=== PATIENT | female | born 1960 | race Caucasian/White ===

== ENCOUNTER 2016-07-13 08:39 | Day surgery (SDC) | payer BC ==
[2016-07-08 11:20] VITALS: BMI 27.4
[~2016-07-13 08:39] MED LIST: HEPARIN SODIUM,PORCINE 5,000 UNIT/ML 1 ML VIAL SQ ONE; HYDROmorphone 1 MG/ML 1 ML SYRINGE IVP PRN; LACTATED RINGERS 1,000 ML IV SCH; LIDOCAINE 1% 20 ML VIAL (10MG/ML) FOR IV START INTRADERMA PRN; MIDAZOLAM 2 MG/2 ML VIAL IV PRN; ONDANSETRON 4 MG/2 ML VIAL IVP PRN; ceFAZolin 2 GM in SODIUM CHLORIDE 0.9% 100 ML IVPB ONE
[2016-07-13 09:02] VITALS: RESP 16; TEMP 97
[2016-07-13] MEDS ORDERED: SCOPOLAMINE 1.5MG/72HR PATCH TRANSDERM ONE (09:17)
[2016-07-13] MEDS ORDERED: HEPARIN SODIUM,PORCINE 5,000 UNIT/ML 1 ML VIAL SQ ONE (10:21)
[2016-07-13] MEDS ORDERED: LIDOCAINE 1% INJ 10MG/ML (20 ML MDV) SQ ONE ×3 (10:24→10:34)
[2016-07-13] MEDS ORDERED: fentaNYL (PF) 50 MCG/ML 2 ML AMP ONE (10:24)
[2016-07-13] MEDS ORDERED: LIDOCAINE 1% INJ 10MG/ML (20 ML MDV) ONE (10:24)
[2016-07-13] MEDS ORDERED: MIDAZOLAM 2 MG/2 ML VIAL ONE (10:24)
[2016-07-13] MEDS ORDERED: PROPOFOL 10 MG/ML 20 ML VIAL IV ONE (10:24)
--- NOTE | 2016-07-13 11:00 | P.OP ---
Date of Procedure: 07/13/16 Preoperative Diagnosis: Right breast cancer Postoperative Diagnosis: Patient status post placement of Port-A-Cath for removal of Port-A-Cath completed chemotherapy Procedure(s) Performed: Removal of right sided internal jugular Port-A-Cath Anesthesia: MAC Surgeon: Malia Stoner Estimated Blood Loss (ml): 1 IV fluids (ml): 300 Pathology: none sent Condition: stable Disposition: PACU Indications for Procedure: Patient has a right internal jugular Port-A-Cath and has completed chemotherapy for breast cancer patient for removal of Port-A-Cath Operative Findings: Right internal jugular Port-A-Cath Description of Procedure: The patient was taken to the operating room and following sedation the right neck and chest wall were prepped and draped in a sterile fashion. An incision was made over the palpable catheter that was anterior to the clavicle. His was done after 1% lidocaine was used to anesthetize the area. Dissection in this area revealed the catheter. It was free and was easily withdrawn from the area of the internal jugular. Prior to this the patient was placed in Trendelenburg. Pressure was applied over the area of the jugular as the catheter was withdrawn. The tip of the catheter was clearly seen and completely removed. After this was accomplished the area of the port was addressed. One percent lidocaine was used to anesthetize this area. Small incision was made over this area and port was exposed. The remainder of the catheter was brought out from the area of the clavicle to the area of the port. The port was than removed from the fibrous pocket in which it was located. After assured that hemostasis was attained the pocket was closed using several deep 3-0 Vicryl sutures. Skin incisions were closed using 4-0 Monocryl. Steri- Strips were applied. All instrument and sponge counts were correct at the end of the case. Patient tolerated procedure in stable condition.
--- NOTE | 2016-07-13 11:01 | P.DS ---
Providers Attending physician: Malia Stoner Primary care physician: Kory Singh Plan - Discharge Summary Discharge Medication List Ascorbic Acid [Vitamin C] 2,000 mg PO DAILY 01/02/16 [History] Atenolol 100 mg PO QAM 01/02/16 [History] Cholecalciferol [Vitamin D3] 20,000 unit PO DAILY 01/02/16 [History] Lisinopril [Prinivil] 10 mg PO QAM 01/02/16 [History] Multivitamins, Thera [Multivitamin (formulary)] 1 tab PO DAILY 01/02/16 [History ] Ibuprofen [Motrin] 600 mg PO Q8HR PRN 02/04/16 [History] Cyanocobalamin [Vitamin B-12] 2 tab PO DAILY 02/09/16 [History] Acetaminophen Tab [Tylenol Tab] 1,000 mg PO Q6HR PRN 07/08/16 [History] Nicotine 21Mg/24Hr Patch [Habitrol 21Mg/24Hr Patch] 1 each TRANSDERM DAILY 07/08 [History] Tamoxifen [Nolvadex] 20 mg PO DAILY 07/08/16 [History] Follow up Appointment(s)/Referral(s): Malia Stoner MD [STAFF PHYSICIAN] - 1 Week Activity/Diet/Wound Care/Special Instructions: do not drive today Discharge Disposition: HOME SELF-CARE
[2016-07-13 11:59] VITALS: BP 142/70; PULSE 58
== END 2016-07-13 12:23 | disposition home or self-care (01) ==
LOC: OR 08:39
PROVIDERS: ATTEND Surgery
DX: Z45.2 Encounter for adjustment and management of vascular access device (principal); C50.919 Malignant neoplasm of unspecified site of unspecified female breast; F17.200 Nicotine dependence, unspecified, uncomplicated; I10 Essential (primary) hypertension; Z79.899 Other long term (current) drug therapy
CPT/HCPCS: 81025; 36590; J2250; J1644; J0690; J2405; J2001; J3010; J2704

== ENCOUNTER 2016-09-21 06:46 | Day surgery (SDC) | payer BC ==
[2016-09-16 14:24] VITALS: BMI 27.4
[~2016-09-21 06:46] MED LIST changes: +DEXAMETHASONE SOD PHOSPHATE 10 MG/ML 1 ML VIAL IV ONE; -HEPARIN SODIUM,PORCINE 5,000 UNIT/ML 1 ML VIAL SQ ONE; +ONDANSETRON 4 MG/2 ML VIAL IVP ONE; -ONDANSETRON 4 MG/2 ML VIAL IVP PRN; +SCOPOLAMINE 1.5MG/72HR PATCH TRANSDERM ONE
[2016-09-21] MEDS ORDERED: ePHEDrine 50 MG/ML 1 ML AMP ONE (07:40)
[2016-09-21] MEDS ORDERED: HYDROmorphone (PF) 1 MG/ML ONE (07:40)
[2016-09-21] MEDS ORDERED: fentaNYL (PF) 50 MCG/ML 2 ML AMP ONE (07:40)
[2016-09-21] MEDS ORDERED: PROPOFOL 10 MG/ML 20 ML VIAL IV ONE (07:40)
[2016-09-21] MEDS ORDERED: MIDAZOLAM 2 MG/2 ML VIAL ONE (07:40)
[2016-09-21] MEDS ORDERED: GLYCOPYRROLATE 0.2 MG/ML 2 ML VIAL ONE (07:40)
[2016-09-21] MEDS ORDERED: ROCURONIUM BROMIDE 10 MG/ML 10 ML VIAL IV ONE (07:40)
[2016-09-21] MEDS ORDERED: LIDOCAINE 1% INJ 10MG/ML (20 ML MDV) ONE (07:40)
[2016-09-21] MEDS ORDERED: NEOSTIGMINE 1 MG/ML 10 ML VIAL ONE (07:40)
[2016-09-21] MEDS ORDERED: SUCCINYLCHOLINE CHLORIDE 100 MG/5 ML SYR IV ONE (07:40)
[2016-09-21] MEDS ORDERED: LACTATED RINGERS 1,000 ML IV ONE (09:44)
[2016-09-21 10:01] VITALS: TEMP 97
[2016-09-21 10:49] VITALS: RESP 20
[2016-09-21] MEDS ORDERED: KETOROLAC 30 MG/ML 1 ML VIAL IVP ONE (11:05)
[2016-09-21] MEDS ORDERED: IBUPROFEN 200 MG TAB PO ONE (11:06)
[2016-09-21 11:44] VITALS: BP 133/77; PULSE 65
--- NOTE | 2016-09-21 18:51 | OP ---
DATE OF SERVICE: 09/21/2016 SURGEON: MINH FORD MD ENVIRONMENTAL ENGINEER SCIENTIST: PREOPERATIVE DIAGNOSES: 1. Acquired loss, right and left breast. 2. Personal history of breast cancer. 3. Personal history of bilateral mastectomy. 4. Acquired loss, right and left inframammary fold. 5. 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 POSTOPERATIVE DIAGNOSES: 1. Acquired loss of right and left breast. 2. Personal history of breast cancer. 3. Personal history of bilateral mastectomy. 4. Acquired loss, right and left inframammary fold. 5. 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 OPERATIVE PROCEDURES: 1. Replacement of right breast tissue a r collections rep with silicone breast implant for reconstruction. 2. Revision right reconstructed breast. 3. Replacement of left breast tissue a r collections rep with silicone breast implant for breast reconstruction. 4. Revision left reconstructed breast. 5. Reconstruction of right and left inframammary folds via local advancement flap, 74 sq cm. 6. Implantation of reconstructive graft for right and left breast reconstruction, 300 sq cm. ANESTHESIA: ESTIMATED BLOOD LOSS: SPECIMENS REMOVED: COMPLICATIONS: OPERATIVE FINDINGS: OPERATIVE INDICATIONS: Patient is a 56-year-old female who has undergone bilateral mastectomies for breast cancer. She chose to undergo immediate breast reconstruction with tissue a r collections rep technique at the time. Her surgery was complicated by postoperative wound healing problems involving both breasts, but severely so on the left. This delayed the time to start expansion. Ultimately she healed without further surgery and has completed expansion. There are significant deformities present for both breasts with significant asymmetry, loss of inframammary folds, contour irregularities present. She is returning to surgery today for second-stage breast reconstruction to remove to tissue expanders, revise the reconstructive breasts to obtain more symmetrical shape and improve the contour as well as reconstruct right and left breast inframammary folds that have been effaced from the mastectomy and reconstruction processes. She understands there are potential risks and complications associated with the surgery, including wound healing problems, and to that end she made all efforts to discontinue use of tobacco, although she remains on a nicotine patch. She also understands that other potential risks and complications are present, and that likely future surgery will be required to obtain a final result. She has requested I perform the surgery. OPERATIVE PROCEDURE SUMMARY: Patient was seen in pre-surgical area. Markings were made, procedure reviewed, all questions answered. She was transported to the operating room, where she was placed in supine position. Following induction of general endotracheal anesthesia, the patient was prepped and draped in the usual fashion. All surgery was performed under loupe magnification. The right and left breasts were marked for incisions, a transverse orientation on each side based on the patient's prior mastectomy scars. The surgery was started on the right side, making an incision following diagram placed, dividing the skin in full-thickness fashion followed by dissection of skin and subcutaneous tissue flap off the underlying muscle flap layer. Extensive dissection was required to release contour irregularities that were noted previously. Cauterization was used to maintain hemostasis and also dissected points. Once this was completed, a vertical incision was made through the muscle flap layer following the breast meridian, exposing the a r collections rep. The a r collections rep was ruptured with a 10 blade scalpel and all fluid suctioned away. The a r collections rep was removed. The cavity appeared normal. No granulation tissue or exudates. The cavity was irrigated using pulsatile irrigation system. A complete capsulotomy incision was made where the capsule joined the chest wall, and multiple cruciate incisions through the expansion capsule were made using cauterization in all areas except for the inferior aspect, where the incisions were made through the capsule in a vertical fashion. This completely the capsule. Additional dissection was required in the inferior portion to release contour irregularities present. This was completed with cauterization, making cruciate incisions through the capsule where necessary to help release the irregularities. The patient's fold on the right side was now reconstructed. The area needed measured 22 cm transversely by 2 cm vertically. Skin and subcutaneous tissue flap was elevated through the inferior capsulotomy incision by dissection with cautery. Once sufficient size was obtained, hemostasis was maintained with cautery. Additional irrigation was performed and the flap was advanced in cephalad fashion and secured to the chest wall in several interrupted locations using 0 and 2-0 Vicryl interrupted sutures, creating a discrete right inframammary fold. Irrigation was performed. Hemostasis was excellent. Initially a 650 mL sizer was placed in the cavity and was covered with a moistened laparotomy sponge, and then attention was turned towards the left side. An incision was made following diagram placed, dividing the skin in full-thickness fashion followed by elevation of skin and subcutaneous tissue flap off the underlying muscle flap layer. The muscle flap layer was quite attenuated on this side. Dissection was completed, the skin and subcutaneous tissue from the underlying muscle flap layer to release contour irregularities that were multiple. Once this was completed, incision was made through the expansion capsular structure following the breast meridian using cauterization, exposing the a r collections rep. The a r collections rep was ruptured with a 10 blade scalpel, all fluid suctioned, then removed. The cavity appeared normal, with no granulation tissue or exudates. Irrigation was performed with pulsatile irrigation system. A complete capsulotomy incision was made where the capsule joined the chest wall. The capsule was slightly hypertrophic on this side compared to the right side. Multiple cruciate incisions were made through the capsule to release the structure in all areas. This significantly decreased the tightness of the capsule. Hemostasis was maintained with cautery. Additional irrigation was performed. The inframammary fold on this side did not require a large flap and it measured 20 cm transversely by 1.5 cm vertically. The inframammary fold flap was elevated through the inferior capsulotomy incision. It consisted of skin and subcutaneous tissue. Once the flap was created, it was advanced in cephalad fashion and secured to the chest wall in several interrupted locations using 0 and 2-0 Vicryl interrupted sutures. A discrete inframammary fold was created in near-symmetric location to the right side. Irrigation was performed. Hemostasis was excellent. Initially a 650 mL sizer was placed into the cavity. The patient was placed in a seated-up position. Different implant sizers were now evaluated. Ultimately, a 750 mL sizer appeared optimal on both sides. She was returned to supine position. Both temporary implant sizers were removed, both sides irrigated. Hemostasis was excellent. Gloves were now changed and breast implants opened on the field. The right-sided implant was opened first: a Dumas memory gel breast implant, smooth, round, high-profile, style 4000 smooth, 750 mL volume, reference #[id number], serial #[id number]. The device was only handled by the surgeon. After irrigating with saline, it was inserted in the right-sided breast reconstruction cavity. Gloves were now changed, the left-sided implant opened on the field: exact same model number and reference number. The serial number for the left-sided device was [id number]. Again the device was irrigated with saline, only handled by the surgeon, and inserted directly in the breast reconstruction cavity. The muscle flap tissue on either side could be directly approximated over the implants without creasing; therefore SurgiMend reconstructive graft material was opened on the field; 2 pieces were opened measuring 10 x 15 cm, thin and fenestrated. They were soaked in room-temperature saline. Once ready, the SurgiMend was placed on the right side, then left side. The SurgiMend was oriented in inferior sling technique, secured just above the inframammary fold region on the right and left sides with interrupted 3-0 Vicryl, and then the muscle flap tissue was advanced over the SurgiMend and the muscle flap tissue and SurgiMend were inset to each other using interrupted 3-0 Vicryl. This was completed on both sides. Complete coverage was now obtained. Additional irrigation was performed. Hemostasis was good. The incisions were now closed, approximating the deep dermis using inverted interrupted 4-0 Monocryl followed by closure of superficial dermis and epidermis with running 5-0 Prolene. The surgical field was cleansed with saline, dried, postoperative bandages placed using Kerlix gauze secured with paper tape followed by positioning a size 3 mammary support with additional gauze padding. The patient was then awakened from her anesthetic, extubated and transferred to the recovery room in good condition with stable vital signs. There were no complications.
== END 2016-09-21 11:59 | disposition home or self-care (01) ==
LOC: OR 06:46
PROVIDERS: ATTEND Plastic Surgery
DX: Z42.1 Encounter for breast reconstruction following mastectomy (principal); R00.1 Bradycardia, unspecified; Z90.13 Acquired absence of bilateral breasts and nipples; Z85.3 Personal history of malignant neoplasm of breast; I10 Essential (primary) hypertension; Z79.899 Other long term (current) drug therapy; F17.200 Nicotine dependence, unspecified, uncomplicated
CPT/HCPCS: 93005; 19342; C1789; C1763; J2250; J1100; J2710; J0690; J2405; J2001; J3010; J1885; J1170; J0330; J2704

== ENCOUNTER 2017-08-24 06:13 | Day surgery (SDC) | payer BC ==
[2017-08-19 10:00] VITALS: BMI 26.6
[~2017-08-24 06:13] MED LIST changes: -HYDROmorphone 1 MG/ML 1 ML SYRINGE IVP PRN; -MIDAZOLAM 2 MG/2 ML VIAL IV PRN; +MORPHINE SULFATE 4 MG/ML SYRINGE IV PRN; +Pre Op ABX Message 1 EACH MISC MISCELLANE ONE; -ceFAZolin 2 GM in SODIUM CHLORIDE 0.9% 100 ML IVPB ONE
[2017-08-24] MEDS ORDERED: ceFAZolin IN SWFI 2 GM/20 ML SYRINGE IVP STA (07:47)
[2017-08-24] MEDS ORDERED: GLYCOPYRROLATE 0.2 MG/ML 2 ML VIAL ONE (07:57)
[2017-08-24] MEDS ORDERED: SUCCINYLCHOLINE CHLORIDE 100 MG/5 ML SYR IV ONE (07:57)
[2017-08-24] MEDS ORDERED: ePHEDrine SULFATE/0.9% NACL/PF 50 MG/5 ML SYRINGE IV ONE (07:57)
[2017-08-24] MEDS ORDERED: PHENYLEPHRINE-0.9% NACL SYG 1 MG/10 ML SYRINGE ONE (07:57)
[2017-08-24] MEDS ORDERED: MIDAZOLAM 2 MG/2 ML VIAL ONE (07:57)
[2017-08-24] MEDS ORDERED: ONDANSETRON 4 MG/2 ML VIAL ONE (07:57)
[2017-08-24] MEDS ORDERED: fentaNYL (PF) 50 MCG/ML 2 ML AMP ONE (07:57)
[2017-08-24] MEDS ORDERED: LIDOCAINE 1% INJ 10MG/ML (20 ML MDV) ONE (07:57)
[2017-08-24] MEDS ORDERED: PROPOFOL 10 MG/ML 20 ML VIAL IV ONE (07:57)
[2017-08-24] MEDS ORDERED: SODIUM CHLORIDE 0.9% 50 ML with ceFAZolin 2,000 MG IV ONE ×2 (08:10)
[2017-08-24 09:30] VITALS: TEMP 97.4
[2017-08-24] MEDS: fentaNYL (PF) 50 MCG/ML 2 ML AMP IVP ONE ×2 (09:41→09:50)
[2017-08-24 10:50] VITALS: RESP 18
--- NOTE | 2017-08-24 11:10 | OP ---
OPERATIVE REPORT DATE OF SURGERY: 08/24/2017 SURGEON: Adam Borja MD PREOPERATIVE DIAGNOSES: 1. Acquired loss left breast. 2. Personal history of breast cancer. 3. Personal history of mastectomy. POSTOPERATIVE DIAGNOSES: 1. Acquired loss left breast. 2. Personal history of breast cancer. 3. Personal history of mastectomy. OPERATIVE PROCEDURE: 1. Delayed reconstruction left breast with insertion of tissue film historian, subsequent outpatient expansion. 2. Implantation of reconstructive graft for left breast reconstruction, 150 square centimeters. OPERATIVE INDICATIONS: The patient is a 57-year-old female who has undergone bilateral mastectomies for treatment of breast cancer. She underwent immediate reconstruction via tissue film historian technique and then completed expansion with implant placements. After the implant placement, the patient developed complications on the left side that ultimately led to removal of her implant and a wound that healed by secondary intention. During that time, the patient has been able to stop smoking to decrease her risk with further surgery and has decided to repeat the expansion process. She understands potential risks and complications related to the surgery including infection, wound healing problems, seroma, hematoma, among others. The patient also understands outcomes cannot be guaranteed and there are other potential complications. She has requested to proceed with the surgery. OPERATIVE PROCEDURE SUMMARY: The patient was seen in the presurgical area, markings made, procedure reviewed, all questions answered. She was transported to the operating room where she was placed in supine position. Following induction of general endotracheal anesthesia, the patient was prepped and draped in usual fashion. The left breast mastectomy wound healing scar was now outlined in elliptical fashion and excised using a 10 blade scalpel, sending the excised scar tissue to pathology. The skin and subcutaneous tissue were then elevated off the underlying muscle flap tissue where present and this was completed with cauterization. Dissection was then performed, dividing the muscle flap layer and scar tissue and then to allow access to the deep surface of the muscle flap area although the plane was heavily scarred. The composite pectoralis muscle flap was re- elevated off the patient's chest wall with cauterization. Portions of the flap were missing or simply replaced by scar tissue, but all tissue that remained appeared viable. Once this submuscular plane was developed in sufficient fashion for breast reconstruction, dissection stopped, irrigations performed, measurements were obtained. A Soufun high-profile breast tissue film historian was opened onto the field. The reference number is [id number], serial number is [id number]. This device had a volume 500 mL. Gloves were first changed and then the device was only handled by the surgeon. All air is extracted. The device was rinsed with saline and 50 mL 0.9 normal saline instilled. It was clear from elevation of the muscle flap that the film historian would not be directly covered by the muscle tissue available due to the scarring and some loss of tissue from her prior surgery and problems. Therefore SurgiMend reconstructive graft measuring 10 x 15 cm thin and fenestrated was opened on the field. Once the graft was revitalized in room temperature saline, the graft was inserted into the reconstructive cavity and sutured just above the inframammary fold level to the muscle flap tissue. The graft was secured here with interrupted 3-0 Vicryl oriented inferior sling style. The film historian was now inserted in reconstructive cavity. The SurgiMend was advanced over the film historian and muscle flap tissue advanced over the SurgiMend. Complete coverage of the film historian was obtained. The SurgiMend and muscle flap tissue were then inset to each other using interrupted 3-0 Vicryl. Irrigation was performed. Hemostasis was excellent. A 19 round Ciro channel drain was opened on the the field and inserted in reconstructive cavity, placed over the muscle flap and SurgiMend layer and brought out through a separate stab incision in left anterior lower chest wall and sutured in placed 2-0 Prolene. The drain was cut to appropriate length. The skin incision was now closed approximating the deep dermis using inverted interrupted 4-0 Monocryl followed by closure of superficial dermis and epidermis with running 5-0 Prolene. Surgical tse cleansed with saline and covered with a postoperative bandage using silver silicone dressing followed by 4x4s secured with 3M paper tape. The drain was connected to close bulb suction and patent and drain sponge was placed. The patient was then awakened from her anesthetic, extubated, and transferred to the recovery room in good condition with stable vital signs. There were no complications. The estimated blood loss was 25 mL and the final fill volume of the film historian was 100 mL. MMODL / IJN: [id number] /
[2017-08-24 11:27] VITALS: BP 126/67; PULSE 80
== END 2017-08-24 11:25 | disposition home or self-care (01) ==
LOC: OR 06:13
PROVIDERS: ATTEND Plastic Surgery
DX: C50.912 Malignant neoplasm of unspecified site of left female breast (principal); Z90.12 Acquired absence of left breast and nipple; I10 Essential (primary) hypertension; F17.210 Nicotine dependence, cigarettes, uncomplicated; Z79.810 Long term (current) use of selective estrogen receptor modulators (SERMs); Z79.899 Other long term (current) drug therapy
CPT/HCPCS: 19357; 15777; 88304; C1763; J2250; J1100; J2405; J2001; J3010; J0690; J2370; J0330; J2704

== ENCOUNTER 2018-02-07 06:19 | Day surgery (SDC) | payer BC ==
[2018-02-01 15:53] VITALS: BMI 27.4
[~2018-02-07 06:19] MED LIST changes: +MIDAZOLAM 2 MG/2 ML VIAL IV PRN; -MORPHINE SULFATE 4 MG/ML SYRINGE IV PRN; -SCOPOLAMINE 1.5MG/72HR PATCH TRANSDERM ONE; +fentaNYL (PF) 50 MCG/ML 2 ML AMP IV PRN
[2018-02-07] MEDS ORDERED: SCOPOLAMINE 1.5MG/72HR PATCH TRANSDERM STA (07:08)
[2018-02-07 07:15] LABS: Basophils # (A) 0.1 k/uL (0-0.2); Basophils % (A) 1 %; Eosinophils # (A) 0.3 k/uL (0-0.7); Eosinophils % (A) 4 %; HCT 43.8 % (34.0-46.0); HGB 14.3 gm/dL (11.4-16.0); Lymphocytes # (A) 2.5 k/uL (1.0-4.8); Lymphocytes % (A) 28 %; MCH 28.7 pg (25.0-35.0); MCHC 32.5 g/dL (31.0-37.0); MCV 88.3 fL (80.0-100.0); Mean Platelet Volume 6.3; Monocytes # (A) 0.3 k/uL (0-1.0); Monocytes % (A) 3 %; Neutrophils # (A) 5.6 k/uL (1.3-7.7); Neutrophils % (A) 63 %; Platelet Count 387 k/uL (150-450); RBC 4.96 m/uL (3.80-5.40); RDW 13.6 % (11.5-15.5); WBC 8.9 k/uL (3.8-10.6)
[2018-02-07 07:30] LABS: Anion Gap 9 mmol/L; Blood Urea Nitrogen 18 mg/dL (7-17); Calcium 9.6 mg/dL (8.4-10.2); Carbon Dioxide 25 mmol/L (22-30); Chloride 109 mmol/L (98-107); Glucose 96 mg/dL (74-99); Potassium 4.7 mmol/L (3.5-5.1); Sodium 143 mmol/L (137-145)
[2018-02-07] MEDS ORDERED: NEOSTIGMINE 1 MG/ML 10 ML VIAL ONE (07:30)
[2018-02-07] MEDS ORDERED: PROPOFOL 10 MG/ML 20 ML VIAL IV ONE (07:30)
[2018-02-07] MEDS ORDERED: GLYCOPYRROLATE 0.2 MG/ML 2 ML VIAL ONE (07:30)
[2018-02-07] MEDS ORDERED: LIDOCAINE 1% INJ 10MG/ML (20 ML MDV) ONE (07:30)
[2018-02-07] MEDS ORDERED: fentaNYL (PF) 50 MCG/ML 2 ML AMP ONE (07:30)
[2018-02-07] MEDS ORDERED: ePHEDrine SULFATE/0.9% NACL/PF 50 MG/5 ML SYRINGE IV ONE (07:30)
[2018-02-07] MEDS ORDERED: ROCURONIUM BROMIDE 10 MG/ML 10 ML VIAL IV ONE (07:30)
[2018-02-07] MEDS ORDERED: MIDAZOLAM 2 MG/2 ML VIAL ONE (07:30)
[2018-02-07] MEDS ORDERED: SODIUM CHLORIDE 0.9% 50 ML with ceFAZolin 2,000 MG IV ONE ×2 (07:48)
[2018-02-07 09:06] VITALS: TEMP 97.5
[2018-02-07] MEDS ORDERED: LACTATED RINGERS 1,000 ML IV ONE (09:27)
[2018-02-07] MEDS ORDERED: KETOROLAC 30 MG/ML 1 ML VIAL IVP ONE (09:38)
[2018-02-07] MEDS: HYDROmorphone 1 MG/ML 1 ML SYRINGE IVP ONE ×2 (09:38→09:43)
[2018-02-07 10:14] VITALS: RESP 16
[2018-02-07] MEDS ORDERED: Acetaminophen-Codeine 300-30mg TAB PO ONE (10:33)
[2018-02-07 10:39] VITALS: BP 152/86; PULSE 67
--- NOTE | 2018-02-07 15:33 | OP ---
OPERATIVE REPORT PREOPERATIVE DIAGNOSES: 1. Acquired loss left breast. 2. Personal history of mastectomy. 3. Personal history of breast cancer. 4. Acquired loss of left inframammary fold. POSTOPERATIVE DIAGNOSES: 1. Acquired loss left breast. 2. Personal history of breast cancer. 3. Personal history of mastectomy. 4. Acquired deformity of reconstructed breast. 5. Acquired loss left breast inframammary fold. OPERATIVE PROCEDURES: 1. Replace left breast tissue evening anchor with silicone breast implant for breast reconstruction. 2. Revision of left reconstructed breast. 3. Reconstruction of left breast inframammary fold via local advancement flap, 32.5 cm2. 4. Implantation of reconstructive graft for left breast reconstruction. OPERATIVE INDICATIONS: Patient is a 57-year-old female who has undergone bilateral mastectomy for treatment of breast cancer initially with the reconstruction via bilateral tissue expanders and placement of implants. The patient then developed problems with healing involving the left breast following placement of implants. Ultimately required removal of the implant and open wound management. She then proceeded with further left breast reconstruction with placement of tissue evening anchor. She has completed subsequent outpatient expansion, has done well, is returning for removal, evening anchor and placement of a breast implant with revision of the breast due to contour irregularities and asymmetry with respect to the right reconstructed breast as well as reconstruction of her inframammary fold that has been effaced due to the reconstructive process. The patient understands the potential risks and complications including, but not limited to, wound healing problems, postoperative infection, seroma, hematoma, among others. She has requested I perform the surgery. OPERATIVE PROCEDURE SUMMARY: The patient is seen in the presurgical area, markings made, procedure reviewed. All questions answered. She was transported to the operative room where she was placed in supine position. Following induction of general anesthesia, the laryngeal mask airway. Following induction, the patient was prepped and draped in the usual fashion. An incision was made following the diagram placed preoperatively. It is oriented transversely along the upper pole of the reconstructed breast area. Skin was divided in full-thickness fashion with 10 blade scalpel followed by cauterization by subcutaneous tissue and underlying muscle flap tissue, exposing the evening anchor. The evening anchor was removed and discarded. The cavity appeared normal with no exudates, no granulation tissue. The cavity was irrigated. The expansion capsule was released which joined the chest wall circumferentially cauterization. Multiple cruciate incisions were made through the capsular structure along the anterior, medial and lateral surface in a vertical incision through the capsule structure inferiorly. This was to release the tightness of the structure medially and superiorly. Prior to additional dissection, the muscle flap tissue beyond the capsular scar to create a symmetrical reconstruction with regards to the right side. This was done with cauterization. Hemostasis maintained with cautery. Irrigation was performed. The patient's inframammary fold now is reconstructed. This required dissection of skin and subcutaneous tissue flap through the inferior capsulotomy incision. The flap measured 13 cm transversely by 2.5 cm vertically. Once elevated, the flap was advanced in a cephalad fashion, secured to the chest wall using interrupted 2-0 Vicryl sutures in several discrete locations creating in an inframammary fold. A symmetrical location to the right. The fold was evaluated. Patient seated in up position and with the cavity filled using an implant Sizer, a 750 mL sizer was used as this was the size of the implant on the right side. This appeared optimal. The patient has returned to supine position. Temporary Sizer removed, cavity irrigated. The gloves changed and breast implant opened on the field from the [employer], reference #[id number], serial #[id number]. The device was only handled by surgeon after irrigating saline inserted directly in the reconstructive cavity. The muscle flap layer could not be approximated all the implant without significant tension increasing. Therefore SurgiMend reconstructive graft measuring 10 x 15 cm thin and fenestrated was opened on the field. Once we vitalized in room temperature saline. The graft was then placed into the reconstructive field above the implant, but deep to the muscle flap area spanning this area. The SurgiMend was inset to the muscle flap tissue using interrupted 3-0 Vicryl. Complete coverage of the implant was obtained. The skin was then closed approximating deep dermis using inverted interrupted 4-0 Monocryl followed by closure of superficial dermis and epidermis with a running 5-0 Prolene. Surgical tse cleansed with saline, dried with a postoperative bandage using 1 inch sterile paper tape followed by full 4x4s secured with paper tape. The size 3 mammary support was with then positioned. The patient was awakened from anesthetic, extubated, and transferred to recovery room in good condition. Stable vital signs. There were no complications. ESTIMATED BLOOD LOSS: 25 mL. MMODL / IJN: [id number] /
== END 2018-02-07 11:22 | disposition home or self-care (01) ==
LOC: OR 06:19
PROVIDERS: ATTEND Plastic Surgery
DX: Z42.1 Encounter for breast reconstruction following mastectomy (principal); N65.0 Deformity of reconstructed breast; Z90.13 Acquired absence of bilateral breasts and nipples; Z85.3 Personal history of malignant neoplasm of breast; Z80.3 Family history of malignant neoplasm of breast; Z87.891 Personal history of nicotine dependence; I10 Essential (primary) hypertension; Z79.1 Long term (current) use of non-steroidal anti-inflammatories (NSAID); Z79.891 Long term (current) use of opiate analgesic; Z79.899 Other long term (current) drug therapy
CPT/HCPCS: 80048; 85025; 11970; 19380; 15777; C1789; C1763; J2250; J1100; J2710; J2405; J2001; J3010; J1885; J1170; J0690; J2704

== ENCOUNTER → 2018-07-20 | Outpatient (CLI) | payer BC ==
--- NOTE | 2018-07-20 13:47 | BD ---
EXAMINATION TYPE: Axial Bone Density DATE OF EXAM: 07/20/2018 COMPARISON: NONE CLINICAL HISTORY: Postmenopausal female Height: 63 Weight: 160.6 FRAX RISK QUESTIONS: Alcohol (3 or more units per day): no Family History (Parent hip fracture): no Glucocorticoids (More than 3mos): no (Ex: prednisone, prednisolone, methylprednisolone, dexamethasone, and hydrocortisone). History of Fracture in Adulthood: no Secondary Osteoporosis: 1. Type 1 Diabetes: no 2. Hyperthyroidism: no 3. Menopause before 45: no 4. Malnutrition: no 5. Chronic liver disease: no Rheumatoid Arthritis: no Current Tobacco Use: yes RISK FACTORS HISTORY OF: Family History of Osteoporosis: no Active: yes Diet low in dairy products/other sources of calcium: no Postmenopausal woman: age 55 MEDICATIONS: lisinopril. atenolol, aromasin Additional History: EXAM MEASUREMENTS: Bone mineral densitometry was performed using the [employer] System. Bone mineral density as measured about the Lumbar spine is: ----- L1-L4(G/cm2): 0.973 T Score Values are as follows: ----- L2: -2.1 ----- L3: -1.8 ----- L4: -2.3 ----- L1-L4: -1.7 Bone mineral density : baseline Bone mineral density about the R hip (g/cm2): 0.934 Bone mineral density about the L hip (g/cm2): 0.918 T Score values are as follows: -----R Neck: -0.7 -----L Neck: -0.9 -----R Total: -0.6 -----L Total: -0.4 Bone mineral density : baseline IMPRESSION: Osteopenia (T Score between -2.5 and -1) in the low back. There is slightly increased risk of fracture and the patient may be considered for treatment. Re-Screen 2-5 years. NOTE: T-SCORE=SD OF THE YOUNG ADULT MEAN.
== END | disposition home or self-care (01) ==
LOC: RADBDWWP 13:13
PROVIDERS: ATTEND Internal Medicine Hematology & Oncology
DX: Z03.89 Encounter for observation for other suspected diseases and conditions ruled out (principal); M85.88 Other specified disorders of bone density and structure, other site; C50.411 Malignant neoplasm of upper-outer quadrant of right female breast
CPT/HCPCS: 77080

== ENCOUNTER → 2020-07-21 | Outpatient (CLI) | payer BC ==
--- NOTE | 2020-07-21 16:33 | BD ---
EXAMINATION TYPE: Axial Bone Density DATE OF EXAM: 07/21/2020 COMPARISON: 07/20/2018 CLINICAL HISTORY: 60-year-old female postmenopausal screening Height: 62.5 IN Weight: 162 LBS FRAX RISK QUESTIONS: Current Tobacco Use: YES RISK FACTORS HISTORY OF: Active: YES Postmenopausal woman: AGE 55 MEDICATIONS: Osteoporosis Medications: NOT NOW Which medication: Fosamax How Long: TOOK FOR 6 MONTHS Additional Medications: CALCIUM, VIT D, ATENOLOL, LISINOPRIL, ANASTROZOLE Additional History: BREAST CANCER WITH CHEMO EXAM MEASUREMENTS: Bone mineral densitometry was performed using the [employer] System. Bone mineral density as measured about the Lumbar spine is: ----- L1-L4(G/cm2): 0.991 T Score Values are as follows: ----- L2: -1.2 ----- L3: -1.8 ----- L4: -2.3 ----- L1-L4: -1.6 Bone mineral density has: Increased 3.0% since study of: 07/20/2018 Bone mineral density about the R hip (g/cm2): 0.896 Bone mineral density about the L hip (g/cm2): 0.805 T Score values are as follows: -----R Neck: -1.0 -----L Neck: -1.7 -----R Total: -0.9 -----L Total: -1.0 Bone mineral density has: Decreased -6.0% since study of: 07/20/2018 IMPRESSION: Osteopenia (T Score between -2.5 and -1). There is slightly increased risk of fracture and the patient may be considered for treatment. Re-Screen 2-5 years. NOTE: T-SCORE=SD OF THE YOUNG ADULT MEAN.
== END | disposition home or self-care (01) ==
LOC: RADBDWWP 14:38
PROVIDERS: ATTEND Internal Medicine Hematology & Oncology
DX: M85.89 Other specified disorders of bone density and structure, multiple sites (principal); Z78.0 Asymptomatic menopausal state
CPT/HCPCS: 77080

== ENCOUNTER → 2022-07-26 | Outpatient (CLI) | payer BC ==
--- NOTE | 2022-07-26 11:42 | BD ---
EXAMINATION TYPE: Axial Bone Density DATE OF EXAM: 07/26/2022 CLINICAL HISTORY: 62 years old Female. ICD-10 CODE: C50.411 BREAST CA Comparison: Prior DEXA bone scan July 21, 2020 Height: 62.25 Weight: 159.4 FRAX RISK QUESTIONS: Alcohol (3 or more units per day): no Family History (Parent hip fracture): no Glucocorticoids (More than 3mos): no History of Fracture in Adulthood: Shoulder Secondary Osteoporosis: 1. Type 1 Diabetes: no 2. Hyperthyroidism: no 3. Menopause before 45: no 4. Malnutrition: no 5. Chronic liver disease: no Rheumatoid Arthritis: no Current Tobacco Use: yes RISK FACTORS HISTORY OF: Hip Fracture (Right/Left): no Spine Fracture: no History of Wrist Fracture: no Surgery to Spine/Hip(right/left)/Wrist (right/left): no Family History of Osteoporosis: no Active: yes Diet low in dairy products/other sources of calcium: no Postmenopausal woman: yes Take estrogen and/or progesterone medications: no Lost more than 2 inches in height since high school: yes Frequent falls: no Poor Health: no Hyperparathyroidism: no Adrenal Insufficiency: no MEDICATIONS: Prednisone or other steroids: no Thyroid Medications: no Osteoporosis Medications: no Additional Medications: Calcium, Vit D, Tumeric, Magnesium, Zinc, Bp Meds, Oral Chemo Additional History: Breast Ca. 2016 with Chemo EXAM MEASUREMENTS: Bone mineral densitometry was performed using the [employer] System. Bone mineral density as measured about the Lumbar spine is: ----- L1-L4(G/cm2): 1.001 T Score Values are as follows: ----- L1: -1.1 ----- L2: -0.9 ----- L3: -1.6 ----- L4: -2.2 ----- L1-L4: -1.5 Z Score Values are as follows: ----- L1: -0.2 ----- L2: 0.1 ----- L3: -0.7 ----- L4: -1.2 ----- L1-L4: -0.5 Bone mineral density has: increased 1.0 % since study of: 07/21/2020 Bone mineral density about the R hip (g/cm2): 0.897 Bone mineral density about the L hip (g/cm2): 0.870 T Score values are as follows: -----R Neck: -1.2 -----L Neck: -1.6 -----R Total: -0.9 -----L Total: -1.1 Z Score values are as follows: -----R Neck: -0.1 -----L Neck: -0.5 -----R Total: -0.1 -----L Total: -0.3 Bone mineral density has: decreased -0.6 % since study of: 07/21/2020 FRAX%s: The graph provided illustrates a 14.5 % chance for a major osteoporotic fx and a 2.4% chance for the hips probability for fx in 10 years time. IMPRESSION: Osteopenia (T Score between -2.5 and -1) remains present. There remains slightly increased risk of fracture and the patient may be considered for treatment. Re-Screen 2-5 years. NOTE: T-SCORE=SD OF THE YOUNG ADULT MEAN.
== END | disposition home or self-care (01) ==
LOC: RADBDWWP 09:19
PROVIDERS: ATTEND Internal Medicine Hematology & Oncology
DX: C50.411 Malignant neoplasm of upper-outer quadrant of right female breast (principal); M85.89 Other specified disorders of bone density and structure, multiple sites; L27.1 Localized skin eruption due to drugs and medicaments taken internally; Z17.0 Estrogen receptor positive status [ER+]; B37.0 Candidal stomatitis
CPT/HCPCS: 77080

== ENCOUNTER 2023-11-18 15:00 | Inpatient (IN) | payer BC ==
--- NOTE | 2023-12-02 08:29 | XR ---
Patient Lizbet Alvarenga ID [id number] Order # EXAMINATION TYPE: XR chest 1V DATE OF EXAM: 11/18/2023 COMPARISON: No comparison available on downtime PACS. INDICATION: Left-sided postthoracentesis TECHNIQUE: Single frontal view of the chest is obtained. FINDINGS: The heart size is normal. The pulmonary vasculature is normal. Left lung is opacified. No pneumothorax is evident. Small amount of shift of mediastinum towards the right . IMPRESSION: 1. Opacified left lung can be compatible with large effusion. Minimal aeration is at the left upper l karel field. Follow-up is recommended. 2. No pneumothorax postthoracentesis.
--- NOTE | 2023-12-14 14:06 | CT ---
EXAMINATION TYPE: CT angio chest CT DLP: 341 mGycm, Automated exposure control for dose reduction was used. DATE OF EXAM: 11/18/2023 COMPARISON: THIS EXAM WAS READ DURING PACS DOWNTIME, NO PRIORS AVAILABLE CLINICAL INDICATION: SOB, PE. History of Breast Cancer with bilateral mastectomy (2016). Isovue 370 /100 ml 20 gauge right lateral wrist. DLP: 341.3 TECHNIQUE/CONTRAST: CTA scan of the thorax is performed with IV Contrast, patient injected with 100 mL of Isovue 370, MIP images are created and reviewed these are created on a separate workstation. . FINDINGS: Pulmonary Artery: There is no evidence for a filling defect within the pulmonary vasculature to sugg est acute pulmonary embolism. The pulmonary artery is of normal size. Lungs/Pleura: Large left pleural effusion with associated atelectasis and rightward deviation of the sternum. Right lower lung calcified granuloma. Airway: Large airways are patent. Heart: Heart is within normal limits for size. Vasculature: No evidence of aortic aneurysm. Mediastinum: No gross evidence of adenopathy, rightward deviation due to large pleural effusion. Musculoskeletal: No acute osseous abnormalities Soft Tissues/lymph node: Bilateral breast implants appear intact. Lower neck: No significant findings. Upper Abdomen: Left adrenal nodule most compatible with adrenal adenoma measuring 12 mm IMPRESSION: 1. No evidence of pulmonary embolism. 2. Large left pleural effusion with complete atelectasis of the left lung. Rightward deviation of th e mediastinum. Thoracentesis recommended. 3. Right adrenal nodule with Hounsfield units compatible with adrenal adenoma. Correlation with alejandro ors if available at outside institutions for stability given history of malignancy.
--- NOTE | 2023-12-15 07:55 | XR ---
EXAMINATION TYPE: XR chest 2V DATE OF EXAM: 12/15/2023 COMPARISON: 12/14/2023 HISTORY: Shortness of breath TECHNIQUE: Frontal and lateral views of the chest are obtained. FINDINGS: Scattered senescent parenchymal changes noted. Hyperinflation compatible with COPD. Complete opacific ation left hemithorax compatible with large pleural effusion. Underlying mass or atelectasis. Mediast inal shift left to right. Heart size is stable. Mediastinal structures are stable and grossly unremarkable. No evidence for hilar prominence. Degenerative changes dorsal spine. IMPRESSION: 1. Complete opacification left hemithorax compatible with large pleural effusion. Underlying mass or atelectasis. Mediastinal shift left to right.
--- NOTE | 2023-12-29 14:41 | PCN ---
PROCEDURE NOTE PREOPERATIVE DIAGNOSIS: Left-sided pleural effusion. POSTOPERATIVE DIAGNOSIS: Left-sided pleural effusion. PROCEDURE IN DETAIL: Procedure was done in the Emergency. Consent was obtained. Left chest was cleaned using ChloraPrep. The skin was anesthetized using 1% lidocaine and following the thoracentesis, catheter was successfully inserted to left side of the hemithorax and a total of 1.3 L of pleural fluid was aspirated without any complications. Pleural fluid was turbid yellowish in color. The patient encountered some coughing following the procedure. The catheter was removed and the chest x-ray was ordered. The pleural fluid was sent for analysis. MMODL / IJN: [id number] /
--- NOTE | 2024-01-05 22:30 | CDI ---
The final diagnosis of the pathology report states left pleural fluid is positive for metastatic adenocarcinoma. Coding guidelines do not allow coding professionals to code based on pathology results; therefore, clarification is requested. History/risk factors: Patient presents with SOB and cough. She has a history of breast cancer and is a current smoker. Clinical Indicators: CT angiography of the chest showed positive L pleural effusion and atelectasis. Treatment: Thoracentesis Please clarify if you agree with the pathology report diagnosis of metastatic adenocarcinoma of left pleural effusion: [ ] Yes [ ] No [ ] Other (please specify) [ ] Unable to determine Yes MTDD
== END 2023-11-18 17:50 | disposition left against medical advice (07) | DRG 188 ==
LOC: 1SOBS 15:00
PROVIDERS: ADMIT Hospitalist; ATTEND Hospitalist
PROC: 0W9B3ZX Drainage of Left Pleural Cavity, Percutaneous Approach, Diagnostic (ICD-10-PCS; principal; 2023-11-18)
DX: J90 Pleural effusion, not elsewhere classified (principal); I10 Essential (primary) hypertension; M85.80 Other specified disorders of bone density and structure, unspecified site; Z85.3 Personal history of malignant neoplasm of breast; Z90.13 Acquired absence of bilateral breasts and nipples; Z79.899 Other long term (current) drug therapy
CPT/HCPCS: 71045; 71046; 71275; 88108; 88305; 88341; 88342; 93005; 99285

== ENCOUNTER → 2023-11-18 | Outpatient (CLI) | payer BC | END | disposition home or self-care (01) | LOC: LABPRL 12:00 | PROVIDERS: ATTEND Internal Medicine Critical Care Medicine | DX: Z08 Encounter for follow-up examination after completed treatment for malignant neoplasm (principal); Z85.3 Personal history of malignant neoplasm of breast | CPT/HCPCS: 82945; 83615; 84157; 87070; 87075; 87116; 87205; 87206; 89050 ==

== ENCOUNTER → 2023-12-08 | Outpatient (CLI) | payer BC ==
--- NOTE | 2023-12-08 17:05 | XR ---
EXAMINATION TYPE: XR chest 2V DATE OF EXAM: 12/08/2023 COMPARISON: 11/18/2023, 11/22/2023 HISTORY: 63-year-old female R06.02, shortness of breath, pleural effusion TECHNIQUE: Frontal and lateral views FINDINGS: There is complete white out of the left hemithorax. Suggestion of some mass effect given slight right arvizu cardia mediastinal shift, worsened from recent prior. Surgical clips left axilla. IMPRESSION: Reaccumulation of a large left pleural effusion now with recurrence of the left hemithoracic whiteout . Some underlying mass effect with slight rightward cardiomediastinal shift.
== END | disposition home or self-care (01) ==
LOC: RADXRMAIN 13:21
PROVIDERS: ATTEND Surgery
DX: R06.02 Shortness of breath
CPT/HCPCS: 71046

== ENCOUNTER 2023-12-14 06:06 | Day surgery (SDC) | payer BC ==
[~2023-12-14 06:06] MED LIST changes: -DEXAMETHASONE SOD PHOSPHATE 10 MG/ML 1 ML VIAL IV ONE; -LACTATED RINGERS 1,000 ML IV SCH; +LIDOCAINE 1% (10MG/ML) FOR IV START INTRADERMA PRN; -LIDOCAINE 1% 20 ML VIAL (10MG/ML) FOR IV START INTRADERMA PRN; -MIDAZOLAM 2 MG/2 ML VIAL IV PRN; -ONDANSETRON 4 MG/2 ML VIAL IVP ONE; -Pre Op ABX Message 1 EACH MISC MISCELLANE ONE; -fentaNYL (PF) 50 MCG/ML 2 ML AMP IV PRN
[2023-12-14] MEDS: IV FLUID CONTINUATION 1,000 ML IV ONE (06:48)
[2023-12-14 06:56] VITALS: TEMP 97
[2023-12-14] MEDS ORDERED: fentaNYL (PF) 50 MCG/ML 2 ML AMP IVP PRN (07:00)
[2023-12-14] MEDS ORDERED: MIDAZOLAM 2 MG/2 ML VIAL IV PRN (07:00)
[2023-12-14] MEDS ORDERED: HYDROmorphone 0.5 MG/0.5 ML SYRINGE IVP PRN (07:00)
[2023-12-14 07:03] LABS: Glucose,Whole Blood 132 mg/dL (70-110)
[2023-12-14] MEDS: LACTATED RINGERS 1,000 ML IV SCH (07:06)
[2023-12-14] MEDS: DEXAMETHASONE SOD PHOSPHATE 4 MG/ML 1 ML VIAL IV ONE (07:07)
[2023-12-14] MEDS: ONDANSETRON 4 MG/2 ML VIAL IVP ONE (07:07)
[2023-12-14] MEDS: IPRATROPIUM-ALBUTEROL 3 ML NEB INHALATION ONE (07:09)
[2023-12-14] MEDS ORDERED: MIDAZOLAM 2 MG/2 ML VIAL ONE (07:25)
[2023-12-14] MEDS ORDERED: fentaNYL (PF) 50 MCG/ML 2 ML AMP ONE (07:25)
[2023-12-14] MEDS: LIDOCAINE 1% INJ 10MG/ML (20 ML MDV) SQ ONE ×2 (07:25→07:44)
[2023-12-14] MEDS ORDERED: PROPOFOL 10 MG/ML 20 ML VIAL IV ONE (07:25)
--- NOTE | 2023-12-14 08:20 | FL ---
EXAMINATION TYPE: FL fluoroscopy <1hr DATE OF EXAM: 12/14/2023 CLINICAL HISTORY: PLEURX CATHETER PLACEMENT TECHNIQUE: Fluoroscopy. COMPARISON: None. FINDINGS: insert left side pleurex cath in or fl time 3.7 secs dap [id number] IMPRESSION: As Above.
[2023-12-14] MEDS: diphenhydrAMINE 50 MG/ML 1 ML VIAL IVP STA (08:25)
--- NOTE | 2023-12-14 08:56 | XR ---
EXAMINATION TYPE: XR chest 1V portable DATE OF EXAM: 12/14/2023 HISTORY: Postop pleurex placement COMPARISON: 12/08/2023 TECHNIQUE: Single view of the chest is submitted. FINDINGS: Actively improved left-sided pleural effusion in a patient who is status post pleurex placement. Left perihilar infiltrate noted. The heart is stable. Hilar and mediastinal structures are within normal limits. Degenerative changes are seen of the dorsal spine. IMPRESSION: Actively improved left-sided pleural effusion in a patient who is status post pleurex placement. Left perihilar infiltrate noted.
[2023-12-14] MEDS: IBUPROFEN 600 MG TAB PO STA (09:04)
[2023-12-14 09:47] VITALS: RESP 18
[2023-12-14] MEDS: ACETAMINOPHEN TAB 500 MG TAB PO STA (10:19)
--- NOTE | 2023-12-14 10:45 | P.OP ---
Date of Procedure: 12/14/23 Preoperative Diagnosis: Large recurrent malignant left pleural effusion Postoperative Diagnosis: Same Procedure(s) Performed: Left Pleurx catheter placement under fluoroscopic guidance with drainage of the left pleural space Implants: Pleurx catheter Anesthesia: MAC Surgeon: Kory Lambert Estimated Blood Loss (ml): 2 IV fluids (ml): 200 Urine output (ml): 0 Pathology: none sent Condition: stable Disposition: PACU Indications for Procedure: 63-year-old female with known metastatic breast cancer and recurrent left pleural effusion with positive cytology. Operative Findings: There was complete whiteout of the left chest. We were able to drain over 3 L of clear serous appearing fluid. This resulted in good reexpansion of the lung. Description of Procedure: Patient was brought to the operating room and placed supine on the table. IV sedation was given. She was appropriately positioned. The left chest and upper abdomen were sterilely prepped and draped. Subcutaneous tissue was anesthetized with lidocaine and the seventh interspace in the midaxillary line. Pleural fluid was identified on deep aspiration at this level. An 18-gauge needle was placed and a guidewire threaded into the chest and confirmed presence in the pleural space under fluoroscopy. This puncture site was then enlarged just over a centimeter and a counterincision was made in the left upper quadrant just under a centimeter. PleurX catheter was tunneled from the abdominal incision to the chest incision and the cuff was positioned just under the skin of the ab dominal exit site. Introducer and sheath were placed over the guidewire into the pleural space under fluoroscopic guidance. Introducer and guidewire were removed and the Pleurx catheter was threaded into the chest space through the introducer sheath. Sheath was then split and removed. The catheter was connected to suction and oral fluid was drained. When the patient began having considerable amount of coughing, we stopped drainage. Fluoroscopy demonstrated reasonable reexpansion of the lung. Catheter was secured at its exit site with a 2-0 silk suture. The entry incision in the lateral seventh interspace was closed with layers of Vicryl suture. Skin glue was applied to this incision. First catheter was disconnected from suction and capped. Standard Pleurx dressing was applied. Band-Aid was applied at the thoracic incision site. Patient was transferred to recovery in stable condition.
[2023-12-14 10:46] VITALS: BP 132/74; PULSE 68
== END 2023-12-14 10:32 | disposition home health service (06) ==
LOC: OR 06:06
PROVIDERS: ATTEND Surgery
DX: J91.0 Malignant pleural effusion (principal); C50.912 Malignant neoplasm of unspecified site of left female breast
CPT/HCPCS: 71045; 76000

== ENCOUNTER 2023-12-15 10:27 | Inpatient (IN) | payer BC ==
--- NOTE | 2023-12-15 10:52 | ED ---
General Adult HPI - General Chief complaint: Shortness of Breath Stated complaint: facial swelling-post op comp Time Seen by Provider: 12/15/23 10:28 Source: patient, family, RN notes reviewed Mode of arrival: ambulatory - History of Present Illness Initial comments: Patient is a 63-year-old female presenting to the emergency department as a transfer from [facility]. Patient was there secondary to swelling. Patient was transferred here secondary to being Dr. Lambert's patient. Patient did have left-sided effusion with pleural cath placed yesterday. Patient developed subcutaneous emphysema that has progressed since that time. Patient states no dyspnea however does hurt to cough. Patient states subcutaneous emphysema is becoming uncomfortable - Related Data Home Medications Medication Instructions Recorded Confirmed Ascorbic Acid [Vitamin C] 1,500 mg PO DAILY 01/02/16 12/15/23 lisinopriL [Prinivil] 5 mg PO DAILY 01/02/16 12/15/23 Cyanocobalamin [Vitamin B-12] 1,000 mcg PO DAILY 02/09/16 12/15/23 Anastrozole 1 mg PO DAILY 12/09/23 12/15/23 Albuterol Inhaler [Ventolin Hfa 1 - 2 puff INHALATION RT-Q6H PRN 12/15/23 12/15/23 Inhaler] Calcium Carbonate/Vitamin D3 2 tab PO DAILY 12/15/23 12/15/23 [Calcium 500 mg Chewable Tablet] Cholecalciferol [Vitamin D3 (125 125 mcg PO DAILY 12/15/23 12/15/23 Mcg = 5000 Iu)] Turmeric Root Extract [Turmeric] 500 mg PO DAILY 12/15/23 12/15/23 Zinc Gluconate [Zinc] 50 mg PO DAILY 12/15/23 12/15/23 atenoloL [Tenormin] 50 mg PO DAILY 12/15/23 12/15/23 Allergies Allergy/AdvReac Type Severity Reaction Status Date / Time No Known Allergies Allergy Verified 12/15/23 12:08 Review of Systems ROS Statement: Those systems with pertinent positive or pertinent negative responses have been documented in the HPI. ROS Other: All systems not noted in ROS Statement are negative. Constitutional: Denies: fever Eyes: Denies: eye pain ENT: Denies: ear pain Respiratory: Reports: as per HPI Cardiovascular: Denies: chest pain Endocrine: Denies: fatigue Gastrointestinal: Denies: abdominal pain Past Medical History Past Medical History: Cancer, Hypertension Additional Past Medical History / Comment(s): R BREAST CANCER (DX OCTOBER 2015), BALWINDER MASTECTOMY AND CHEMO THERAPY (LAST DOSE MAY 2016)., VARICOSE VEINS. pleural effsuions History of Any Multi-Drug Resistant Organisms: None Reported Past Surgical History: Breast Surgery, Tubal Ligation Additional Past Surgical History / Comment(s): BALWINDER MASECTOMY, PORT A CATH INSERTION AND REMOVAL, bilateral breast reconstruction with left implant removed due to leaking. drain to left lung Past Anesthesia/Blood Transfusion Reactions: Motion Sickness, Postoperative Nausea & Vomiting (PONV) Additional Past Anesthesia/Blood Transfusion Reaction / Comment(s): Scopalomine patch-used in past with good results. No hx blood transfusion. Past Psychological History: No Psychological Hx Reported Smoking Status: Current every day smoker - Past Family History Mother Family Medical History: Cancer Additional Family Medical History / Comment(s): LUNG CANCER Father Family Medical History: CVA/TIA, Hypertension General Exam Limitations: no limitations General appearance: alert, other (Significant subcu emphysema of the chest neck and even to the face) Head exam: Present: atraumatic Eye exam: Present: normal appearance Neck exam: Present: other (Subcutaneous emphysema) Respiratory exam: Present: other (Subcutaneous emphysema) Cardiovascular Exam: Present: regular rate, normal rhythm GI/Abdominal exam: Present: soft. Absent: tenderness Extremities exam: Present: normal inspection. Absent: pedal edema, calf tenderness Neurological exam: Present: alert Psychiatric exam: Present: normal affect, normal mood Skin exam: Present: normal color Course Vital Signs 12/15/23 10:31 Temperature 97 F L Pulse Rate 66 Respiratory 20 Rate Blood Pressure 157/76 O2 Sat by Pulse 97 Oximetry EKG Findings - EKG Results: EKG: interpreted by ERMD, sinus rhythm, normal axis, normal QRS, normal ST/T Medical Decision Making - Medical Decision Making Was pt. sent in by a medical professional or institution (, PA, [employer], urgent care, hospital, or halfway...) When possible be specific @ -Patient was sent from [facility] Did you speak to anyone other than the patient for history (EMS, parent, family, police, friend...)? What history was obtained from this source @ -Speak with transferring physician Did you review nursing and triage notes (agree or disagree)? Why? @ -I reviewed and agree with nursing and triage notes Were old charts reviewed (outside hosp., previous admission, EMS record, old EKG, old radiological studies, urgent care reports/EKG's, halfway records)? Report findings @ -Previous x-rays reviewed including large effusion in December for Differential Diagnosis (chest pain, altered mental status, abdominal pain women, abdominal pain men, vaginal bleeding, weakness, fever, dyspnea, syncope, headache, dizziness, GI bleed, back pain, seizure, CVA, palpatations, mental health, musculoskeletal)? @ -Differential Dyspnea: Coronary syndrome, arrhythmia, tamponade, asthma, COPD, pulmonary embolism, pneumonia, pneumothorax, pulmonary effusion, anaphylaxis, diabetic ketoacidosis, flailed chest, pulmonary contusion, diaphragmatic rupture, anemia, neuromuscular, this is not meant to be an all-inclusive list. EKG interpreted by me (3pts min.). @ -As above X-rays interpreted by me (1pt min.). @ -Chest x-ray shows significant subcutaneous emphysema diffusely. Cannot rule out tiny pneumothorax CT interpreted by me (1pt min.). @ -None done U/S interpreted by me (1pt. min.). @ -None done What testing was considered but not performed or refused? (CT, X-rays, U/S, labs)? Why? @ -None What meds were considered but not given or refused? Why? @ -None Did you discuss the management of the patient with other professionals (professionals i.e. , PA, [employer], lab, RT, psych nurse, social insurance adviser, director asset, teacher, aoc [employer] operations staff officer, skilled nursing case manager)? Give summary @ -Case discussed with Dr. Rod who will admit covering hospital call. Case also discussed with practitioner Geovanny peoples who did come evaluate the patient and placed suction to her chest tube. Was smoking cessation discussed for >3mins.? @ -No Was critical care preformed (if so, how long)? @ -No Were there social determinants of health that impacted care today? How? (Homelessness, low income, unemployed, alcoholism, drug addiction, transportation, low edu. Level, literacy, decrease access to med. care, shelter, rehab)? @ -No Was there de-escalation of care discussed even if they declined (Discuss DNR or withdrawal of care, Hospice)? DNR status @ -No What co-morbidities impacted this encounter? (DM, HTN, Smoking, COPD, CAD, Cancer, CVA, ARF, Chemo, Hep., AIDS, mental health diagnosis, sleep apnea, morbid obesity)? @ -Recent large effusion Was patient admitted / discharged? Hospital course, mention meds given and route, prescriptions, significant lab abnormalities, going to OR and other pertinent info. @ -Patient presents with significant subcutaneous emphysema. Patient will be admitted with cardiothoracic consult. Admission orders written. Patient updated. Undiagnosed new problem with uncertain prognosis? @ -No Drug Therapy requiring intensive monitoring for toxicity (Heparin, Nitro, Insulin, Cardizem)? @ -No Were any procedures done? @ -No Diagnosis/symptom? @ -Subcutaneous emphysema Acute, or Chronic, or Acute on Chronic? @ -Acute Uncomplicated (without systemic symptoms) or Complicated (systemic symptoms)? @ -Default Side effects of treatment? @ -No Exacerbation, Progression, or Severe Exacerbation? @ -No Poses a threat to life or bodily function? How? (Chest pain, [place], NH, pneumonia, PE, COPD, DKA, ARF, appy, cholecystitis, CVA, Diverticulitis, Homicidal, Suicidal, threat to staff... and all critical care pts) @ -Threat to pulmonary function Disposition Clinical Impression: Subcutaneous emphysema Disposition: ADMITTED IP TO THIS HOSP Is patient prescribed a controlled substance at d/c from ED?: No Referrals: Nonstaff,Physician [Primary Care Provider] - 1-2 days Time of Disposition: 12:36
--- NOTE | 2023-12-15 11:26 | XR ---
EXAMINATION TYPE: XR chest 1V portable DATE OF EXAM: 12/15/2023 HISTORY: Shortness of breath. COMPARISON: None. TECHNIQUE: Single view of the chest is submitted. FINDINGS: Extensive subcutaneous emphysema greatest along the left chest wall extending up into the neck and up per extremities. Is evidence of pneumomediastinum. No obvious pneumothorax although difficult to stat e with certainty. Left lower lobe infiltrate. The heart is stable. Hilar and mediastinal structures are within normal limits. Degenerative changes are seen of the dorsal spine. IMPRESSION: 1. Extensive subcutaneous emphysema greatest along the left chest wall extending up into the neck an d upper extremities. Is evidence of pneumomediastinum. No obvious pneumothorax although difficult to state with certainty. Left lower lobe infiltrate.
[2023-12-15] MEDS: MORPHINE SULFATE 4 MG/ML SYRINGE IVP STA (11:36)
[2023-12-15] MEDS ORDERED: ALBUTEROL NEBULIZED 2.5 MG/3 ML INHALATION PRN (12:19)
[2023-12-15] MEDS ORDERED: NALOXONE 0.4 MG/ML 1 ML VIAL IV PRN (12:37)
[2023-12-15 12:51] LABS: Basophils # (A) 0.1 k/uL (0-0.2); Basophils % (A) 0 %; Eosinophils # (A) 0.4 k/uL (0-0.7); Eosinophils % (A) 2 %; HCT 48.6 % (34.0-46.0); HGB 15.4 gm/dL (11.4-16.0); Lymphocytes # (A) 2.4 k/uL (1.0-4.8); Lymphocytes % (A) 14 %; MCH 27.9 pg (25.0-35.0); MCHC 31.8 g/dL (31.0-37.0); MCV 87.9 fL (80.0-100.0); Mean Platelet Volume 6.9; Monocytes # (A) 0.4 k/uL (0-1.0); Monocytes % (A) 2 %; Neutrophils # (A) 14.6 k/uL (1.3-7.7); Neutrophils % (A) 81 %; Platelet Count 432 k/uL (150-450); RBC 5.53 m/uL (3.80-5.40); RDW 13.9 % (11.5-15.5)
[2023-12-15 13:03] LABS: Partial Thromboplastin Time 23.1 sec (22.0-30.0); Prothrombin Time 10.8 sec (10.0-12.5)
[2023-12-15 13:09] LABS: ALT 89 U/L (4-34); AST 87 U/L (14-36); African American GFR (CKD) >90 (>60 ml/min/1.73 sqM); Albumin 3.8 g/dL (3.5-5.0); Alkaline Phosphatase 89 U/L (38-126); Anion Gap 8 mmol/L; Blood Urea Nitrogen 15 mg/dL (7-17); Calcium 9.8 mg/dL (8.4-10.2); Carbon Dioxide 25 mmol/L (22-30); Chloride 105 mmol/L (98-107); Glucose 126 mg/dL (74-99); Non-African American GFR(CKD) >90 (>60 ml/min/1.73 sqM); Potassium 4.3 mmol/L (3.5-5.1); Sodium 138 mmol/L (137-145); Total Bilirubin 1.1 mg/dL (0.2-1.3); Total Protein 6.1 g/dL (6.3-8.2)
--- NOTE | 2023-12-15 14:22 | P.GSCN ---
History of Present Illness Consult date: 12/15/23 Reason for Consult: Post operative day #1 Pleurx catheter placement subcutaneous emphysema. Requesting physician: Guillermo Lan History of present illness: This is a 63-year-old female patient who follows on an outpatient basis with Chris Schafer nurse practitioner. She has a past medical history significant for metastatic breast cancer and recurrent left pleural effusions with positive cytology, hypertension, and is a lifetime nonsmoker. The patient underwent a left Pleurx catheter placement yesterday by Dr. Kory Lambert, postoperative x- ray was completed which did not show any obvious pneumothorax. The patient reports around midnight last night she developed some swelling to her arms and to her face and subsequently presented to the emergency department at [facility]. The patient reports that she underwent a chest x-ray at [facility] and was subsequently transferred to [facility] due to some subcutaneous emphysema. The patient denies any fever, chills, nausea, vomiting, diarrhea, constipation, dyspnea, dysphagia, hemoptysis, hematemesis, or pain.A chest x-ray was completed here at [facility] which demonstrated extensive subcutaneous emphysema greatest along the left chest wall extending up into the neck and upper extremities, evidence of pneumomediastinum, and no obvious pneumothorax. Due to the findings of the extensive subcutaneous emphysema a consult was placed to Dr. Kory Lambert from cardiothoracic surgery for further evaluation and treatment recommendations. Review of Systems A review of systems was completed and was negative except as mentioned in the HPI. Past Medical History Past Medical History: Cancer, Hypertension Additional Past Medical History / Comment(s): R BREAST CANCER (DX OCTOBER 2015), BALWINDER MASTECTOMY AND CHEMO THERAPY (LAST DOSE MAY 2016)., VARICOSE VEINS. pleural effsuions History of Any Multi-Drug Resistant Organisms: None Reported Past Surgical History: Breast Surgery, Tubal Ligation Additional Past Surgical History / Comment(s): BALWINDER MASECTOMY, PORT A CATH INSERTION AND REMOVAL, bilateral breast reconstruction with left implant removed due to leaking. drain to left lung Past Anesthesia/Blood Transfusion Reactions: Motion Sickness, Postoperative Nausea & Vomiting (PONV) Additional Past Anesthesia/Blood Transfusion Reaction / Comm: Scopalomine patch- used in past with good results. No hx blood transfusion. Past Psychological History: No Psychological Hx Reported Smoking Status: Current every day smoker Past Drug Use History: None Reported - Past Family History Mother Family Medical History: Cancer Additional Family Medical History / Comment(s): LUNG CANCER Father Family Medical History: CVA/TIA, Hypertension Medications and Allergies Home Medications Medication Instructions Recorded Confirmed Type Ascorbic Acid [Vitamin C] 1,500 mg PO DAILY 01/02/16 12/15/23 History lisinopriL [Prinivil] 5 mg PO DAILY 01/02/16 12/15/23 History Cyanocobalamin [Vitamin B-12] 1,000 mcg PO DAILY 02/09/16 12/15/23 History Anastrozole 1 mg PO DAILY 12/09/23 12/15/23 History Albuterol Inhaler [Ventolin Hfa 1 - 2 puff INHALATION RT-Q6H PRN 12/15/2303/27 History Inhaler] Calcium Carbonate/Vitamin D3 2 tab PO DAILY 12/15/23 12/15/23 History [Calcium 500 mg Chewable Tablet] Cholecalciferol [Vitamin D3 (125 125 mcg PO DAILY 12/15/23 12/15/23 History Mcg = 5000 Iu)] Turmeric Root Extract [Turmeric] 500 mg PO DAILY 12/15/23 12/15/23 History Zinc Gluconate [Zinc] 50 mg PO DAILY 12/15/23 12/15/23 History atenoloL [Tenormin] 50 mg PO DAILY 12/15/23 12/15/23 History Allergies Allergy/AdvReac Type Severity Reaction Status Date / Time No Known Allergies Allergy Verified 12/15/23 12:08 Surgical - Exam Vital Signs Temp Pulse Resp BP Pulse Ox 97 F L 66 20 157/76 97 12/15/23 10:31 12/15/23 10:31 12/15/23 10:31 12/15/23 10:31 12/15/23 10:31 - General well developed, well nourished, no distress, no pain - Eyes PERRL, normal ocular movement, no pale, no icteric - ENT normal pinna, normal nares, normal mucosa, no hearing loss, no congestion - Neck Subcutaneous emphysema present to her neck no masses, no bruits, trachea midline, no venous distension - Respiratory Lungs essentially clear throughout, diminished to her bilateral bases left greater than right. No wheezes, rhonchi or crackles. Oxygen saturation 97% on room air. Respirations are symmetrical and nonlabored. - Cardiovascular Regular rhythm and rate. S1 and S2 present, negative for S3, gallop or murmur. Bedside telemetry showing normal sinus rhythm heart rate 66 BPM. - Abdomen Abdomen is soft, nontender and nondistended. Active bowel sounds present in all 4 abdominal quadrants. No guarding or rigidity. No organomegaly appreciated. - Genitourinary Deferred - Rectum Deferred - Integumentary Dressing to left chest Pleurx catheter clean dry and intact. Skin is warm and dry, no clubbing or cyanosis is present. Extensive subcutaneous emphysema to her bilateral upper extremities, her upper chest, upper back, neck and face. no rash, no growths, no abnormal pigmentation - Neurologic No focal deficits. - Musculoskeletal Moves all 4 extremities with equal strength bilaterally. - Psychiatric oriented to time, oriented to person, oriented to place, speech is normal, memory intact Results - Labs 12/15/23 12:40 12/15/23 12:40 Abnormal Lab Results - Last 24 Hours (Table) 12/15/23 12/15/23 Range/Units 12:40 12:40 WBC 18.0 H (3.8-10.6) k/uL RBC 5.53 H (3.80-5.40) m/uL Hct 48.6 H (34.0-46.0) % Neutrophils # 14.6 H (1.3-7.7) k/uL Creatinine 0.43 L (0.52-1.04) mg/dL Glucose 126 H (74-99) mg/dL AST 87 H (14-36) U/L ALT 89 H (4-34) U/L Total Protein 6.1 L (6.3-8.2) g/dL Diabetes panel 12/15/23 Range/Units 12:40 Sodium 138 (137-145) mmol/L Potassium 4.3 (3.5-5.1) mmol/L Chloride 105 (98-107) mmol/L Carbon Dioxide 25 (22-30) mmol/L BUN 15 (7-17) mg/dL Creatinine 0.43 L (0.52-1.04) mg/dL Glucose 126 H (74-99) mg/dL Calcium 9.8 (8.4-10.2) mg/dL AST 87 H (14-36) U/L ALT 89 H (4-34) U/L Alkaline Phosphatase 89 (38-126) U/L Total Protein 6.1 L (6.3-8.2) g/dL Albumin 3.8 (3.5-5.0) g/dL Calcium panel 12/15/23 Range/Units 12:40 Calcium 9.8 (8.4-10.2) mg/dL Albumin 3.8 (3.5-5.0) g/dL Pituitary panel 12/15/23 Range/Units 12:40 Sodium 138 (137-145) mmol/L Potassium 4.3 (3.5-5.1) mmol/L Chloride 105 (98-107) mmol/L Carbon Dioxide 25 (22-30) mmol/L BUN 15 (7-17) mg/dL Creatinine 0.43 L (0.52-1.04) mg/dL Glucose 126 H (74-99) mg/dL Calcium 9.8 (8.4-10.2) mg/dL Adrenal panel 12/15/23 Range/Units 12:40 Sodium 138 (137-145) mmol/L Potassium 4.3 (3.5-5.1) mmol/L Chloride 105 (98-107) mmol/L Carbon Dioxide 25 (22-30) mmol/L BUN 15 (7-17) mg/dL Creatinine 0.43 L (0.52-1.04) mg/dL Glucose 126 H (74-99) mg/dL Calcium 9.8 (8.4-10.2) mg/dL Total Bilirubin 1.1 (0.2-1.3) mg/dL AST 87 H (14-36) U/L ALT 89 H (4-34) U/L Alkaline Phosphatase 89 (38-126) U/L Total Protein 6.1 L (6.3-8.2) g/dL Albumin 3.8 (3.5-5.0) g/dL - Imaging Chest x-ray: report reviewed, image reviewed Assessment and Plan Assessment: Extensive subcutaneous emphysema, likely secondary to left chest Pleurx catheter placement yesterday 12/14/2023 Recurrent left-sided malignant effusion, status post Pleurx catheter placement History of metastatic breast cancer History of hypertension Chronic ongoing tobacco dependence Plan: The patient was seen and examined at her bedside in the emergency department, her is present at her bedside. Her chart and diagnostics were reviewed. Her case was discussed in detail with Dr. Kroy Lambert from cardiothoracic surgery. We will place her left Pleurx catheter to a Pleur-evac [place] system on low continuous wall suction -20 cm H2O. Continue to monitor for resolution of the subcutaneous emphysema. Pain management per current pair and orders. Encourage use of incentive spirometry 10 times every hour while awake. Continue to monitor daily chest x-rays. If the subcutaneous emphysema should get worse she may require blow hole incisions to relieve the subcutaneous emphysema. Medical management other comorbidities per primary care service. More recommendations to follow based on patient's clinical course. Thank you for this consult and we will look forward to working with you in the care of this patient. I have personally seen and examined the patient, performed the documentation and the assessment and plan as written. 30 minutes spent on the visit . Geovanny VILLEGAS
--- NOTE | 2023-12-15 15:25 | P.HPIM ---
History of Present Illness H&P Date: 12/15/23 Patient is a 63-year-old female with a past medical history significant for metastatic breast cancer and recurrent left pleural effusions underwent left pleural catheter placement yesterday by Dr. Lambert then developed swelling in her arms and face last night and subsequently went to the emergency department at [facility]. She was noted of subcutaneous emphysema on chest x-ray and was transferred to [facility]. She denies fever, chills, nausea, vomiting, chest pain, shortness of breath, hemoptysis. A repeat chest x-ray here showed extensive subcutaneous emphysema greatest along the left chest wall extending up to the neck and upper extremities, evidence of pneumomediastinum, no obvious pneumothorax, left lower lobe infiltrate. Due to the findings on chest x-ray a consult was placed to Dr. Lambert for further evaluation and treatment recommendations. Chest x-ray shows extensive subcutaneous emphysema along the chest wall extending up into the neck and upper extremities, evidence of pneumomediastinum, no obvious pneumothorax, left lower lobe infiltrate. WBCs 18, AST 87, ALT 89. Afebrile, hypertensive 157/76 ED documentation reviewed. Review of systems: Pertinent positives and negatives as discussed in HPI, a complete review of systems was performed and all other systems are negative. Physical examination: Vital signs reviewed General: No acute distress Derm: Dressing to left chest catheter present, skin is warm and dry, extensive subcutaneous emphysema in bilateral upper extremities, upper chest, upper back, face, neck Head: Atraumatic normocephalic, symmetric Eyes: EOMI, no lid lag, anicteric sclera, pupils equal round reactive to light ENT: Nose and ears atraumatic Neck: No cervical lymphadenopathy, trachea midline, supple Mouth: No lip lesion, mucus membranes moist Cardiovascular: S1S2 present, regular rate and rhythm, no murmurs/rubs/gallops Lungs: Diminished breath sounds Abdominal: Soft, nontender to palpation, no guarding Ext: Muscle strength 5 out of 5 in all 4 extremities grossly, no gross muscle atrophy, no contractures, positive dorsalis pedis pulse bilateral, no edema Neuro: CN II-XI grossly intact, no gross focal neuro deficits Psych: Alert, oriented, appropriate affect and mood Assessment/Plan: #. Subcutaneous emphysema, likely secondary to left chest catheter Consult cardiothoracic surgeryawait further recommendations #. Hypertension Continue lisinopril #. History of metastatic breast cancer #. Tobacco dependence Chronic conditions: Hypertension, metastatic breast cancer The patient is admitted with an anticipated less than than 2 midnight stay for evaluation of subcutaneous emphysema CODE STATUS: Full code Discussed with: Patient and family Anticipated discharge place: Home Dr. Bibiana MD I have performed a history and physical examination and medical decision making of this patient, discussed the same with the the resident, and agree with the assessment and plan as written. I performed brief physical exam. Past Medical History Past Medical History: Cancer, Hypertension Additional Past Medical History / Comment(s): R BREAST CANCER (DX OCTOBER 2015), BALWINDER MASTECTOMY AND CHEMO THERAPY (LAST DOSE MAY 2016)., VARICOSE VEINS. pleural effsuions History of Any Multi-Drug Resistant Organisms: None Reported Past Surgical History: Breast Surgery, Tubal Ligation Additional Past Surgical History / Comment(s): BALWINDER MASECTOMY, PORT A CATH INSERTION AND REMOVAL, bilateral breast reconstruction with left implant removed due to leaking. drain to left lung Past Anesthesia/Blood Transfusion Reactions: Motion Sickness, Postoperative Nausea & Vomiting (PONV) Additional Past Anesthesia/Blood Transfusion Reaction / Comment(s): Scopalomine patch-used in past with good results. No hx blood transfusion. Past Psychological History: No Psychological Hx Reported Smoking Status: Current every day smoker - Past Family History Mother Family Medical History: Cancer Additional Family Medical History / Comment(s): LUNG CANCER Father Family Medical History: CVA/TIA, Hypertension Medications and Allergies Home Medications Medication Instructions Recorded Confirmed Type Ascorbic Acid [Vitamin C] 1,500 mg PO DAILY 01/02/16 12/15/23 History lisinopriL [Prinivil] 5 mg PO DAILY 01/02/16 12/15/23 History Cyanocobalamin [Vitamin B-12] 1,000 mcg PO DAILY 02/09/16 12/15/23 History Anastrozole 1 mg PO DAILY 12/09/23 12/15/23 History Albuterol Inhaler [Ventolin Hfa 1 - 2 puff INHALATION RT-Q6H PRN 12/15/23 12/15/23 History Inhaler] Calcium Carbonate/Vitamin D3 2 tab PO DAILY 12/15/23 12/15/23 History [Calcium 500 mg Chewable Tablet] Cholecalciferol [Vitamin D3 (125 125 mcg PO DAILY 12/15/23 12/15/23 History Mcg = 5000 Iu)] Turmeric Root Extract [Turmeric] 500 mg PO DAILY 12/15/23 12/15/23 History Zinc Gluconate [Zinc] 50 mg PO DAILY 12/15/23 12/15/23 History atenoloL [Tenormin] 50 mg PO DAILY 12/15/23 12/15/23 History Allergies Allergy/AdvReac Type Severity Reaction Status Date / Time No Known Allergies Allergy Verified 12/15/23 12:08 Physical Exam Vitals: Vital Signs Temp Pulse Resp BP Pulse Ox 12/15/23 10:31 97 F L 66 20 157/76 97 Intake and Output 12/14/23 12/15/23 12/15/23 22:59 06:59 14:59 Other: Weight 70.307 kg Results CBC & Chem 7: 12/15/23 12:40 12/15/23 12:40
[2023-12-15] MEDS: MORPHINE SULFATE 4 MG/ML SYRINGE IV PRN (16:09)
[2023-12-15] MEDS: SODIUM CHLORIDE 0.9% 1,000 ML IV SCH (16:10)
--- NOTE | 2023-12-15 16:31 | P.CNPUL ---
History of Present Illness Consult date: 12/15/23 Requesting physician: Kory Lambert Reason for consult: dyspnea, abnormal CXR/CT Chief complaint: Chest and facial edema History of present illness: This is a very pleasant 63-year-old female patient with a known history of breast cancer in 2016 status post bilateral mastectomy and chemotherapy, hypertension, and large recurrent malignant left pleural effusion. She did undergo a Pleurx catheter placement yesterday and was discharged to home. Today she developed increasing facial edema and left chest edema and was transferred back here from the hospital. Chest x-ray does show extensive subcutaneous emphysema greatest along the left chest wall extending up into the neck and upper extremities. There is evidence of pneumomediastinum. No obvious pneumothorax. Left lower lobe infiltrate. Left Pleurx catheter in place. Low continuous wall suction -20 cm of water. A leak is noted. White count 18.0. Hemoglobin 15.4. Platelets 432. Sodium 138. Potassium 4.3. Bicarb 25. BUN 15. Creatinine 0.43. Glucose 126. AST 87. ALT 89. She is seen today in consultation in the emergency department. She is awake and alert in no acute distress. She is maintaining good O2 saturations in the 90s on room air. She does have extensive subcutaneous emphysema mostly in the left lateral chest wall up into the upper extremities neck and face. She denies any difficulty in swallowing, no difficulty breathing. Review of Systems REVIEW OF SYSTEMS: CONSTITUTIONAL: Denies any recent significant weight loss or weight gain. EYES: Denies change in vision. EARS, NOSE, MOUTH, THROAT: Denies headaches, denies sore throat. CARDIOVASCULAR: Denies chest pain, palpitations or syncopal episodes. RESPIRATORY: Denies shortness of breath, cough, congestion or hemoptysis. GASTROINTESTINAL: Denies change in appetite, denies abdominal pain GENITOURINARY: Denies hematuria, denies infections. MUSKULOSKELETAL: Denies pain, denies swelling. INTEGUMENTARY: Positive for increasing edema of the left lateral chest wall, neck and face. NEUROLOGICAL: Denies recent memory loss, no recent seizure activity. PSYCHIATRIC: Denies anxiety, denies depression. HEMATOLOGIC/LYMPHATIC: Denies anemia, denies enlarged lymph nodes. Past Medical History Past Medical History: Cancer, Hypertension Additional Past Medical History / Comment(s): R BREAST CANCER (DX OCTOBER 2015), BALWINDER MASTECTOMY AND CHEMO THERAPY (LAST DOSE MAY 2016)., VARICOSE VEINS. pleural effsuions History of Any Multi-Drug Resistant Organisms: None Reported Past Surgical History: Breast Surgery, Tubal Ligation Additional Past Surgical History / Comment(s): BALWINDER MASECTOMY, PORT A CATH INSERTION AND REMOVAL, bilateral breast reconstruction with left implant removed due to leaking. drain to left lung Past Anesthesia/Blood Transfusion Reactions: Motion Sickness, Postoperative Nausea & Vomiting (PONV) Additional Past Anesthesia/Blood Transfusion Reaction / Comment(s): Scopalomine patch-used in past with good results. No hx blood transfusion. Past Psychological History: No Psychological Hx Reported Smoking Status: Current every day smoker - Past Family History Mother Family Medical History: Cancer Additional Family Medical History / Comment(s): LUNG CANCER Father Family Medical History: CVA/TIA, Hypertension Medications and Allergies Home Medications Medication Instructions Recorded Confirmed Type Ascorbic Acid [Vitamin C] 1,500 mg PO DAILY 01/02/16 12/15/23 History lisinopriL [Prinivil] 5 mg PO DAILY 01/02/16 12/15/23 History Cyanocobalamin [Vitamin B-12] 1,000 mcg PO DAILY 02/09/16 12/15/23 History Anastrozole 1 mg PO DAILY 12/09/23 12/15/23 History Albuterol Inhaler [Ventolin Hfa 1 - 2 puff INHALATION RT-Q6H PRN 12/15/23 12/15/23 History Inhaler] Calcium Carbonate/Vitamin D3 2 tab PO DAILY 12/15/23 12/15/23 History [Calcium 500 mg Chewable Tablet] Cholecalciferol [Vitamin D3 (125 125 mcg PO DAILY 12/15/23 12/15/23 History Mcg = 5000 Iu)] Turmeric Root Extract [Turmeric] 500 mg PO DAILY 12/15/23 12/15/23 History Zinc Gluconate [Zinc] 50 mg PO DAILY 12/15/23 12/15/23 History atenoloL [Tenormin] 50 mg PO DAILY 12/15/23 12/15/23 History Allergies Allergy/AdvReac Type Severity Reaction Status Date / Time No Known Allergies Allergy Verified 12/15/23 12:08 Physical Exam Vitals: Vital Signs Temp Pulse Resp BP Pulse Ox 12/15/23 14:27 98.0 F 78 18 132/64 92 L 12/15/23 10:31 97 F L 66 20 157/76 97 Intake and Output 12/15/23 12/15/23 12/15/23 06:59 14:59 22:59 Output Total 24 Balance -24 Output: Chest Tube Drainage 24 Left Upper 24 Other: Weight 70.307 kg GENERAL EXAM: Alert, pleasant 63-year-old female, on room air, fairly comfortable in no apparent distress. HEAD: Normocephalic. Extensive subcutaneous emphysema covering her face and neck. EYES: Normal reaction of pupils, equal size. NOSE: Clear with pink turbinates. THROAT: No erythema or exudates. NECK: No masses, no JVD. CHEST: Extensive subcutaneous emphysema along the left lateral chest. Left Pleurx catheter in place to Pleur-evac and low continuous wall suction. LUNGS: Equal air entry with crackles in the left lung base. CVS: S1 and S2 normal with no audible murmur, regular rhythm. ABDOMEN: No hepatosplenomegaly, normal bowel sounds, no guarding or rigidity. SPINE: No scoliosis or deformity SKIN: No rashes CENTRAL NERVOUS SYSTEM: No focal deficits, tone is normal in all 4 extremities. EXTREMITIES: There is no peripheral edema. No clubbing, no cyanosis. Peripheral pulses are intact. Results - Laboratory Findings CBC and BMP: 12/15/23 12:40 12/15/23 12:40 PT/INR, D-dimer PT 10.8 sec (10.0-12.5) 12/15/23 12:40 INR 1.0 (<1.2) 12/15/23 12:40 Abnormal lab findings: Abnormal Labs 12/15/23 12/15/23 12:40 12:40 WBC 18.0 H RBC 5.53 H Hct 48.6 H Neutrophils # 14.6 H Creatinine 0.43 L Glucose 126 H AST 87 H ALT 89 H Total Protein 6.1 L - Diagnostic Findings Chest x-ray: image reviewed Assessment and Plan Assessment: Acute subcutaneous emphysema involving the left lateral chest wall, upper extremities, neck and face, status post left-sided Pleurx catheter placement yesterday 12/14/2023 Recurrent large left-sided pleural effusion, positive for metastatic adenocarcinoma, status post thoracentesis in November 2023 History of breast cancer, status post bilateral mastectomy, bilateral sentinel node biopsy and subsequent reconstruction in 2016 completed chemotherapy in 2017 Chronic tobacco dependence Plan: The patient was seen and evaluated Chest x-ray, labs and medications reviewed Significant subcutaneous emphysema noted Pleurx catheter placed to low continuous wall suction Continue to monitor leak Currently stable and on room air We will continue to follow and make further recommendations based on her clinical status I have personally seen and examined the patient, performed the documentation and the assessment and plan as written. Number of minutes spent on the visit: 20.
--- NOTE | 2023-12-16 08:09 | XR ---
EXAMINATION TYPE: XR chest 1V portable DATE OF EXAM: 12/16/2023 HISTORY: Follow-up subcutaneous emphysema COMPARISON: None. TECHNIQUE: Single view of the chest is submitted. FINDINGS: Progression of extensive subcutaneous emphysema throughout the chest, upper extremities and neck. The re appears to be pneumomediastinum. Examination is nondiagnostic for exclusion of pneumothoraces. There is no evidence for focal infiltrate. The heart is stable. Hilar and mediastinal structures are within normal limits. Degenerative changes are seen of the dorsal spine. IMPRESSION: 1. Progression of extensive subcutaneous emphysema throughout the chest, upper extremities and neck. There appears to be pneumomediastinum. Examination is nondiagnostic for exclusion of pneumothoraces.
[2023-12-16] MEDS ORDERED: NON FORMULARY DRUG (Turmeric Root Extract [Turmeric] 500 MG Tablet) PO SCH (09:00)
--- NOTE | 2023-12-16 09:11 | CT ---
EXAMINATION TYPE: CT chest wo con DATE OF EXAM: 12/16/2023 COMPARISON: CT 11/18/2023, radiograph and HISTORY: 63-year-old female Pleural effusion, mass, SQ emphysema TECHNIQUE: Contiguous axial scanning of the chest without IV contrast. Coronal/sagittal reconstructio ns performed. CT DLP: 321.2mGycm. Automatic exposure control utilized for a dose reduction. FINDINGS: Bilateral breast implants. Possible progressive thickening of fluid/soft tissue density along the lef t lateral aspect of the left-sided implant measuring 6.8 cm now possibly measuring 3.4 cm, previously . Suspect marked generalized anasarca. Superimposed severe subcutaneous emphysema bilaterally. Extensive pneumomediastinum is also present. There is also a small left sided pneumothorax estimated at 15%. There is an anterior left lower chest wall pleural catheter which courses through the subcutaneous [place]. There is focal kinking and the catheter, axial image 90 and 91 as it courses superficially befor e diving back to as the pleural space. It traverses the left lateral eighth intercostal space and is located posteriorly at the left lung base. Heart normal size. There is a small pericardial effusion measuring 8 mm thick. Aorta normal caliber with conventional branching anatomy. Borderline caliber main right and left pulm onary septum 0.6 cm may reflect underlying pulmonary arterial hypertension. Right paratracheal lymph nodes measure up to 1.3 cm and should be reassessed at follow-up. No pleural effusion. Patchy groundglass change scattered throughout the left lung. Visualized upper abdomen shows a 3 mm nonobstructive left renal calculus. Suspect some underlying non calcified and calcified gallstones. Bones: Mild degenerative disc disease lower thoracic spine. IMPRESSION: 0. Anterior left lower chest wall pleural catheter is kinked as it courses through the subcutaneous l ambar (axial image 90 and 91). It enters via the left lateral eighth intercostal space. Correlate to e xclude any chest tube malfunction/damage. 1. Severe subcutaneous emphysema throughout with corresponding pneumomediastinum and a small 15% left pneumothorax. 2. Some patchy groundglass change scattered throughout the left lung could represent pneumonitis or p atchy pulmonary edema. 3. 2-3 month follow-up CT to reassess mildly enlarged right paratracheal lymph nodes measuring up to 1.3 cm. 4. Severe anasarca change. Cholelithiasis. 5. Focal fluid and soft tissue along the left lateral margin of the patient's left breast implant duglas suring 6.8 cm versus approximately 3.4 cm, previously. This area should be reassessed after addressin g the more immediate concerns. Possibly related to the extensive soft tissue changes.
[2023-12-16] MEDS: ASCORBIC ACID 500 MG TAB PO SCH (10:01)
[2023-12-16] MEDS: CYANOCOBALAMIN 500 MCG TAB PO SCH (10:01)
[2023-12-16] MEDS: ZINC SULFATE 220 MG CAP PO SCH (10:01)
[2023-12-16] MEDS: CHOLECALCIFEROL 125 MCG (5000 IU) TABLET PO SCH (10:01)
[2023-12-16] MEDS: CALCIUM CARB-VIT D 500 MG-5 MCG TAB PO SCH (10:01)
[2023-12-16] MEDS: atenoloL 50 MG TAB PO SCH (10:01)
[2023-12-16] MEDS: lisinopriL 5 MG TAB PO SCH (10:02)
[2023-12-16] MEDS: ANASTROZOLE 1 MG TAB PO SCH (10:05)
--- NOTE | 2023-12-16 11:39 | P.PN ---
Subjective Progress Note Date: 12/16/23 Patient is a 63-year-old female with a past medical history significant for metastatic breast cancer and recurrent left pleural effusions underwent left pleural catheter placement 12/14/[address] Lambert then developed swelling in her arms and face later that night and subsequently went to the emergency department at [facility]. She was noted of subcutaneous emphysema on chest x-ray and was transferred to [facility]. She denies fever, chills, nausea, vomiting, chest pain, shortness of breath, hemoptysis. A repeat chest x-ray here showed extensive subcutaneous emphysema greatest along the left chest wall extending up to the neck and upper extremities, evidence of pneumomediastinum, no obvious pneumothorax, left lower lobe infiltrate. Due to the findings on chest x-ray a consult was placed to Dr. Lambert for further evaluation and treatment recommendations. Chest x-ray shows extensive subcutaneous emphysema along the chest wall extending up into the neck and upper extremities, evidence of pneumomediastinum, no obvious pneumothorax, left lower lobe infiltrate. WBCs 18, AST 87, ALT 89. Afebrile, hypertensive 157/76 12/15. Patient see and examined at bedside. Pleurx catheter is on low continuous wall suction. An air leak was noted. Pulmonary consulted. Believes it is getting worse, can no longer see out of left eye due to swelling. Endorses cough. Repeat chest x-ray: Progression of extensive subcutaneous emphysema throughout the chest, upper extremities, neck, pneumomediastinum. CT chest showed: Kinked pleural catheter, severe subcutaneous emphysema with c orresponding pneumomediastinum, small left pneumothorax, patchy groundglass changes throughout left lung, enlarged paratracheal lymph nodes, severe anasarca, focal fluid and soft tissue along left lateral margin of patient's left breast implant. ROS reviewed. Pertinent positives and negatives discussed above, a complete review of systems was performed and all the other systems were negative. Physical examination: Vital signs reviewed General: No acute distress Derm: Dressing to left chest catheter present, skin is warm and dry, extensive subcutaneous emphysema in bilateral upper extremities, upper chest, upper back, face, neck; crepitus present throughout Head: Atraumatic normocephalic, symmetric Eyes: EOMI, no lid lag, anicteric sclera, pupils equal round reactive to light ENT: Nose and ears atraumatic Neck: No cervical lymphadenopathy, trachea midline, supple Mouth: No lip lesion, mucus membranes moist Cardiovascular: S1S2 present, regular rate and rhythm, no murmurs/rubs/gallops Lungs: Diminished breath sounds Abdominal: Soft, nontender to palpation, no guarding Ext: Muscle strength 5 out of 5 in all 4 extremities grossly, no gross muscle atrophy, no contractures, positive dorsalis pedis pulse bilateral, no edema Neuro: CN II-XI grossly intact, no gross focal neuro deficits Psych: Alert, oriented, appropriate affect and mood Assessment Acute subcutaneous emphysema of the left lateral chest wall, upper extremities, neck, face; status post left-sided Pleurx catheter placement 12/14/2023 Recurrent left-sided pleural effusion, positive for metastatic adenocarcinoma History of breast cancer Chronic tobacco abuse Plan Pleurx catheter placed on low continuous wall suction Continue to monitor leak Pending pulmonary recommendations Pending cardiothoracic surgery recommendations Objective - Vital Signs Vital signs: Vital Signs Temp 98.0 F 12/16/23 00:27 Pulse 82 12/16/23 06:03 Resp 18 12/16/23 06:03 BP 138/70 12/16/23 06:03 Pulse Ox 92 L 12/16/23 06:03 FiO2 Intake & Output 12/15/23 12/15/23 12/16/23 06:59 18:59 06:59 Output Total 62 36 Balance -62 -36 Weight 70.307 kg Output: Chest Tube Drainage 62 36 Left Upper 62 36 - Labs CBC & Chem 7: 12/15/23 12:40 12/15/23 12:40 Labs: Abnormal Lab Results - Last 24 Hours (Table) 12/15/23 12/15/23 Range/Units 12:40 12:40 WBC 18.0 H (3.8-10.6) k/uL RBC 5.53 H (3.80-5.40) m/uL Hct 48.6 H (34.0-46.0) % Neutrophils # 14.6 H (1.3-7.7) k/uL Creatinine 0.43 L (0.52-1.04) mg/dL Glucose 126 H (74-99) mg/dL AST 87 H (14-36) U/L ALT 89 H (4-34) U/L Total Protein 6.1 L (6.3-8.2) g/dL
--- NOTE | 2023-12-16 11:45 | P.PN ---
Subjective Progress Note Date: 12/16/23 This is a very pleasant 63-year-old female patient with a known history of breast cancer in 2016 status post bilateral mastectomy and chemotherapy, hypertension, and large recurrent malignant left pleural effusion. She did undergo a Pleurx catheter placement yesterday and was discharged to home. Today she developed increasing facial edema and left chest edema and was transferred back here from the hospital. Chest x-ray does show extensive subcutaneous emphysema greatest along the left chest wall extending up into the neck and upper extremities. There is evidence of pneumomediastinum. No obvious pneumothorax. Left lower lobe infiltrate. Left Pleurx catheter in place. Low continuous wall suction -20 cm of water. A leak is noted. White count 18.0. Hemoglobin 15.4. Platelets 432. Sodium 138. Potassium 4.3. Bicarb 25. BUN 15. Creatinine 0.43. Glucose 126. AST 87. ALT 89. She is seen today in consultation in the emergency department. She is awake and alert in no acute distress. She is maintaining good O2 saturations in the 90s on room air. She does have extensive subcutaneous emphysema mostly in the left lateral chest wall up into the upper extremities neck and face. She denies any difficulty in swallowing, no difficulty breathing. The patient is seen today December 16, 2023 in follow-up on the regular medical floor. She is awake and alert in no acute distress. Sitting up at the bedside. Continues to maintain good O2 saturations in the 90s on room air. Her subcutaneous emphysema remains. She is afebrile. Hemodynamically stable. CT scan of the chest reveals that the Pleurx catheter to the left chest is kinked as it courses through the subcutaneous layer. It enters via the left lateral eighth intercostal space. Correlate to exclude any chest tube malfunction. Severe subcutaneous emphysema throughout the corresponding pneumomediastinum and small 15% left pneumothorax. Some patchy groundglass changes scattered throughout the left lung could represent pneumonitis versus pulmonary edema. Severe anasarca. Cholelithiasis. She is receiving morphine for pain control. Normal saline at KVO. Objective - Vital Signs Vital signs: Vital Signs Temp 98.0 F 12/16/23 07:58 Pulse 75 12/16/23 11:15 Resp 17 12/16/23 11:15 BP 138/86 12/16/23 11:15 Pulse Ox 93 L 12/16/23 11:15 FiO2 Intake & Output 12/15/23 12/16/23 12/16/23 18:59 06:59 18:59 Output Total 62 36 Balance -62 -36 Weight 70.307 kg Output: Chest Tube Drainage 62 36 Left Upper 62 36 - Exam GENERAL EXAM: Alert, pleasant 63-year-old female, on room air, fairly comfortable in no apparent distress. HEAD: Normocephalic. Extensive subcutaneous emphysema covering her face and neck. EYES: Normal reaction of pupils, equal size. NOSE: Clear with pink turbinates. THROAT: No erythema or exudates. NECK: No masses, no JVD. CHEST: Extensive subcutaneous emphysema along the left lateral chest. Left Pleurx catheter in place to Pleur-evac and low continuous wall suction. LUNGS: Equal air entry with crackles in the left lung base. CVS: S1 and S2 normal with no audible murmur, regular rhythm. ABDOMEN: No hepatosplenomegaly, normal bowel sounds, no guarding or rigidity. SPINE: No scoliosis or deformity SKIN: No rashes CENTRAL NERVOUS SYSTEM: No focal deficits, tone is normal in all 4 extremities. EXTREMITIES: There is no peripheral edema. No clubbing, no cyanosis. Peripheral pulses are intact. - Labs CBC & Chem 7: 12/15/23 12:40 12/15/23 12:40 Labs: Abnormal Lab Results - Last 24 Hours (Table) 12/15/23 12/15/23 Range/Units 12:40 12:40 WBC 18.0 H (3.8-10.6) k/uL RBC 5.53 H (3.80-5.40) m/uL Hct 48.6 H (34.0-46.0) % Neutrophils # 14.6 H (1.3-7.7) k/uL Creatinine 0.43 L (0.52-1.04) mg/dL Glucose 126 H (74-99) mg/dL AST 87 H (14-36) U/L ALT 89 H (4-34) U/L Total Protein 6.1 L (6.3-8.2) g/dL Assessment and Plan Assessment: Acute subcutaneous emphysema involving the left lateral chest wall, upper extremities, neck and face, status post left-sided Pleurx catheter placement 12/14/2023. CT scan of the chest reveals that the Pleurx catheter to the left chest is kinked as it courses through the subcutaneous layer. It enters via the left lateral eighth intercostal space. Correlate to exclude any chest tube malfunction. Severe subcutaneous emphysema throughout the corresponding pneumomediastinum and small 15% left pneumothorax. Some patchy groundglass changes scattered throughout the left lung could represent pneumonitis versus pulmonary edema. Severe anasarca. Cholelithiasis. Recurrent large left-sided pleural effusion, positive for metastatic adenocarcinoma, status post thoracentesis in November 2023 History of breast cancer, status post bilateral mastectomy, bilateral sentinel node biopsy and subsequent reconstruction in 2015 completed chemotherapy in 2017 Chronic tobacco dependence Plan: The patient was seen and evaluated CT scan of the chest and medications reviewed Left Pleurx catheter may be kinked Significant subcutaneous emphysema and use Continue to monitor leak CT services are following Currently stable and on room air We will continue to follow I have personally seen and examined the patient, performed the documentation and the assessment and plan as written. Number of minutes spent on the visit: 10.
[2023-12-16] MEDS: ACETAMINOPHEN TAB 325 MG TAB PO PRN (15:37)
--- NOTE | 2023-12-16 17:06 | P.PN ---
Subjective Progress Note Date: 12/16/23 Principal diagnosis: This is a 63-year-old female patient who follows on an outpatient basis with Chris Schafer nurse practitioner. She has a past medical history significant for metastatic breast cancer and recurrent left pleural effusions with positive cytology, hypertension, and is a lifetime nonsmoker. The patient underwent a left Pleurx catheter placement yesterday by Dr. Kory Lambert, postoperative x- ray was completed which did not show any obvious pneumothorax. The patient reports around midnight last night she developed some swelling to her arms and to her face and subsequently presented to the emergency department at [facility]. The patient reports that she underwent a chest x-ray at [facility] and was subsequently transferred to [facility] due to some subcutaneous emphysema. The patient denies any fever, chills, nausea, v omiting, diarrhea, constipation, dyspnea, dysphagia, hemoptysis, hematemesis, or pain. A chest x-ray was completed here at [facility] which demonstrated extensive subcutaneous emphysema greatest along the left chest wall extending up into the neck and upper extremities, evidence of pneumomediastinum, and no obvious pneumothorax. Post operative day #2 Pleurx catheter placement subcutaneous emphysema. The patient was seen and examined in follow-up today December 16, 2023 at her bedside in the emergency department. The patient is currently sitting up to the bedside edge, eating her breakfast, is awake, alert, oriented x 3 and is in no acute apparent distress. She denies any complaints of shortness of breath or dysphagia at this time, but states that she feels the subcutaneous emphysema has gotten worse to her face. She remains hemodynamically stable. Oxygen satura tions are 96% on 2 L nasal cannula, and she is achieving 500 to 750 mL on her incentive spirometry with encouragement. Chest x-ray this morning shows progression of extensive subcutaneous emphysema throughout the chest, upper extremities and neck, mediastinum and a small left apical pneumothorax. The Pleurx catheter remains connected to bedside Pleur-evac [place] system on low continuous wall suction, intermittent air leak is present. Draining thin serous drainage with 140 mL output in the last [address] scan of the chest has been ordered by pulmonary medicine. Objective - Vital Signs Vital signs: Vital Signs Temp 98.0 F 12/16/23 07:58 Pulse 75 12/16/23 11:15 Resp 17 12/16/23 11:15 BP 138/86 12/16/23 11:15 Pulse Ox 93 L 12/16/23 11:15 FiO2 Intake & Output 12/15/23 12/16/23 12/16/23 18:59 06:59 18:59 Output Total 62 36 Balance -62 -36 Weight 70.307 kg Output: Chest Tube Drainage 62 36 Left Upper 62 36 - Exam CONSTITUTIONAL: Cooperative, no acute distress RESPIRATORY: Lungs sounds diminished throughout bilaterally. Respirations symmetrical, nonlabored. Currently on 2 L nasal cannula with oxygen saturation 96 %. Able to achieve 500-750 mL on incentive spirometry. Strong cough. CARDIOVASCULAR: S1, S2 present. Regular rate and rhythm, sinus rhythm on telemetry. Palpable peripheral pulses bilaterally. No edema present. No calf pain or tenderness noted. GASTROINTESTINAL: Abdomen soft, nontender, nondistended. Active bowel sounds present 4 quadrants. Tolerating diet. Passing flatus. GENITOURINARY: Continues to void. INTEGUMENTARY: Skin is warm and dry with evidence of good perfusion. Extensive subcutaneous emphysema to her bilateral upper extremities, neck, chest, back, and face including the periorbital. NEUROLOGIC: Cranial nerves II through XII intact no focal deficits. MUSKULOSKELETAL: Able to move all extremities, strength equal bilaterally, gait normal. PSYCHIATRIC: Alert and oriented to person place and time, appropriate affect, intact judgment and insight INVASIVE LINES AND TUBES: Left chest Pleurx catheter in place connected to [place] Pleur-evac system, intermittent air leak is present. Draining thin serosanguineous drainage with 140 mL output in the last 24 hours. - Allied health notes Allied health notes reviewed: nursing - Labs CBC & Chem 7: 12/15/23 12:40 12/15/23 12:40 - Imaging and Cardiology Chest x-ray: report reviewed, image reviewed Assessment and Plan Assessment: Extensive subcutaneous emphysema, likely secondary to left chest Pleurx catheter placement yesterday 12/14/2023 Recurrent left-sided malignant effusion, status post Pleurx catheter placement History of metastatic breast cancer History of hypertension Chronic ongoing tobacco dependence Plan: Continue left pleural Pleurx catheter to low continuous wall suction -20 cm H2O. Continue to monitor for resolution of extensive subcutaneous emphysema and air leak. Agree with CT scan of the chest ordered by pulmonary medicine. Increase activity as tolerated. Wean oxygen as tolerated. Encourage use of incentive spirometry 10 times every hour while awake. Medical management other comorbidities per primary care service and pulmonology service. Continue to monitor daily chest x-rays More recommendations to follow based on patient's clinical course. Time with Patient: Less than 30
--- NOTE | 2023-12-17 07:34 | XR ---
EXAMINATION TYPE: XR chest 1V portable DATE OF EXAM: 12/17/2023 6:59 AM CLINICAL INDICATION: Female, 63 years old with history of Subcutaneous emphysema; [facility] COMPARISON: CT 12/16/2023 TECHNIQUE: XR chest 1V portable Frontal view of the chest. FINDINGS: Lungs/Pleura: There is no evidence of pleural effusion, focal consolidation, or pneumothorax. Pulmonary vascularity: Unremarkable. Heart/mediastinum: Cardiomediastinal silhouette is unremarkable. Curvilinear lucencies seen along the aorta and upper mediastinum. Musculoskeletal: No acute osseous pathology. Other findings: Subcutaneous emphysema scattered throughout the visualized thorax. Lines/Tubes: Left thoracotomy tube is present with trace pneumothorax is seen on CT. pneumothorax. The thoracotomy tube is coiled up in the subcutaneous tissues as seen on same day CT. Multiple side ports are seen i n the subcutaneous tissues outside the pleural space. This likely resulted in the pneumomediastinum s ubcutaneous emphysema . IMPRESSION: Evidence of pneumomediastinum and subcutaneous emphysema throughout pneumothorax is seen on CT 024. Malpositioned left thoracotomy tube with coiling in the subcutaneous tissues with side ports also in the subcutaneous tissues.
--- NOTE | 2023-12-17 08:32 | P.PN ---
Subjective Progress Note Date: 12/17/23 Principal diagnosis: This is a 63-year-old female patient who follows on an outpatient basis with Chris Schafer nurse practitioner. She has a past medical history significant for metastatic breast cancer and recurrent left pleural effusions with positive cytology, hypertension, and is a lifetime nonsmoker. The patient underwent a left Pleurx catheter placement yesterday by Dr. Kory Lambert, postoperative x- ray was completed which did not show any obvious pneumothorax. The patient reports around midnight last night she developed some swelling to her arms and to her face and subsequently presented to the emergency department at [facility]. The patient reports that she underwent a chest x-ray at [facility] and was subsequently transferred to [facility] due to some subcutaneous emphysema. The patient denies any fever, chills, nausea, v omiting, diarrhea, constipation, dyspnea, dysphagia, hemoptysis, hematemesis, or pain. A chest x-ray was completed here at [facility] which demonstrated extensive subcutaneous emphysema greatest along the left chest wall extending up into the neck and upper extremities, evidence of pneumomediastinum, and no obvious pneumothorax. Post operative day #3 Pleurx catheter placement subcutaneous emphysema. The patient seen and examined in follow-up today December 17, 2023 at her bedside on the third floor cardiac stepdown unit. The patient is currently sitting up to the bedside edge eating her breakfast, is awake, alert, oriented x 3 and is in no acute apparent distress. Denies any complaints of difficulty breathing or difficulty swallowing at this time. She denies any complaints of shortness of breath or pain at this time. The patient does report that she does have an overall uncomfortable feeling secondary to the extensive subcutaneous emphysema. She reports she has been up ambulating in her room without difficulty, Pleurx catheter remains hooked up to the Pleurx [place] system and connected to low continuous wall suction -20 cm H2O. No air leak is present. D raining thin serous drainage with 150 mL output in the last 24 hours. Oxygen saturations are 92% on room air and she is achieving 500 mL on her incentive spirometry with encouragement. Bedside telemetry is showing normal sinus rhythm heart rate 89 bpm. Chest x-ray results reviewed. Objective - Vital Signs Vital signs: Vital Signs Temp 97.9 F 12/16/23 20:00 Pulse 88 12/17/23 01:52 Resp 16 12/17/23 01:52 BP 142/82 12/17/23 01:52 Pulse Ox 91 L 12/17/23 01:52 FiO2 Intake & Output 12/16/23 12/17/23 12/17/23 18:59 06:59 18:59 Intake Total 540 Output Total 55 250 Balance -55 290 Weight 70.307 kg Intake: Oral 540 Output: Chest Tube Drainage 55 250 Left Upper 55 250 Other: Voiding Method Toilet # Voids 1 - Exam CONSTITUTIONAL: Cooperative, no acute distress RESPIRATORY: Lungs sounds diminished throughout bilaterally. Respirations symmetrical, nonlabored. Currently on room air with oxygen saturation 92%. Able to achieve 500 mL on her incentive spirometry. Strong cough. CARDIOVASCULAR: S1, S2 present. Regular rate and rhythm, sinus rhythm on telemetry, heart rate in the 80s. Palpable peripheral pulses bilaterally. No edema present. No calf pain or tenderness noted. GASTROINTESTINAL: Abdomen soft, nontender, nondistended. Active bowel sounds present 4 quadrants. Tolerating diet. Passing flatus. GENITOURINARY: Continues to void. INTEGUMENTARY: Skin is warm and dry with evidence of good perfusion. Extensive subcutaneous emphysema to her bilateral upper extremities, neck, chest, back, and face including the periorbital. NEUROLOGIC: Cranial nerves II through XII intact no focal deficits. MUSKULOSKELETAL: Able to move all extremities, strength equal bilaterally, gait normal. PSYCHIATRIC: Alert and oriented to person place and time, appropriate affect, intact judgment and insight INVASIVE LINES AND TUBES: Left chest Pleurx catheter in place connected to [place] Pleur-evac system, intermittent air leak is present. Draining thin serosanguineous drainage with 150 mL output in the last 24 hours. - Allied health notes Allied health notes reviewed: nursing - Labs CBC & Chem 7: 12/15/23 12:40 12/15/23 12:40 - Imaging and Cardiology Chest x-ray: report reviewed, image reviewed Assessment and Plan Assessment: Extensive subcutaneous emphysema, likely secondary to persistent cough Recurrent left-sided malignant effusion, status post Pleurx catheter placement History of metastatic breast cancer History of hypertension Chronic ongoing tobacco dependence Plan: Continue left pleural Pleurx catheter to low continuous wall suction -20 cm H2O. Continue to monitor for resolution of extensive subcutaneous emphysema. Dr. Lambert will make some incisional blow holes today to help relieve the subcutaneous emphysema. Continue to monitor daily chest x-rays. Increase activity as tolerated. Encourage use of incentive spirometry 10 times every hour while awake. Medical management other comorbidities per primary care service and pulmonology service. More recommendations to follow based on patient's clinical course. Time with Patient: Greater than 30
--- NOTE | 2023-12-17 09:13 | P.PCN ---
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 She had 3 L of fluid drained at the time of the Pleurx catheter placement. She had severe cough following the Pleurx catheter placement. She was discharged home. She represented the following day with subcu emphysema. PleurX catheter was connected to a Pleur- evac to suction. Despite this the subcu emphysema continued to worsen. Was decided to place bilateral below holes to address the subcu emphysema which had closed both of her eyes. Description of Procedure: At the bedside, subclavian areas bilaterally were sterilely prepped. Lidocaine anesthesia was used. 2 cm incisions were made bilaterally and dissection was carried down into the subcutaneous tissue with a hemostat. Air bubbling was noted at both sites. Bilateral incisions were packed with gauze and a nonocclusive dressing applied bilaterally. Patient tolerated the procedure well.
[2023-12-17] MEDS: LIDOCAINE 1% INJ 10MG/ML (20 ML MDV) SQ ONE (09:20)
--- NOTE | 2023-12-17 11:07 | P.PN ---
Subjective Progress Note Date: 12/17/23 Patient is a 63-year-old female with a past medical history significant for metastatic breast cancer and recurrent left pleural effusions underwent left pleural catheter placement 12/14/[address] Lambert then developed swelling in her arms and face later that night and subsequently went to the emergency department at [facility]. She was noted of subcutaneous emphysema on chest x-ray and was transferred to [facility]. She denies fever, chills, nausea, vomiting, chest pain, shortness of breath, hemoptysis. A repeat chest x-ray here showed extensive subcutaneous emphysema greatest along the left chest wall extending up to the neck and upper extremities, evidence of pneumomediastinum, no obvious pneumothorax, left lower lobe infiltrate. Due to the findings on chest x-ray a consult was placed to Dr. Lambert for further evaluation and treatment recommendations. Chest x-ray shows extensive subcutaneous emphysema along the chest wall extending up into the neck and upper extremities, evidence of pneumomediastinum, no obvious pneumothorax, left lower lobe infiltrate. WBCs 18, AST 87, ALT 89. Afebrile, hypertensive 157/76 12/15. Patient see and examined at bedside. Pleurx catheter is on low continuous wall suction. An air leak was noted. Pulmonary consulted. Believes it is getting worse, can no longer see out of left eye due to swelling. Endorses cough. Repeat chest x-ray: Progression of extensive subcutaneous emphysema throughout the chest, upper extremities, neck, pneumomediastinum. CT chest showed: Kinked pleural catheter, severe subcutaneous emphysema with c orresponding pneumomediastinum, small left pneumothorax, patchy groundglass changes throughout left lung, enlarged paratracheal lymph nodes, severe anasarca, focal fluid and soft tissue along left lateral margin of patient's left breast implant. 12/16. Patient seen and examined at bedside. CT surgery placed bilateral blow holes this morningprocedure was tolerated well. Patient denies chest pain, shortness of breath, wheezing. ROS reviewed. Pertinent positives and negatives discussed above, a complete review of systems was performed and all the other systems were negative. Physical examination: Vital signs reviewed General: No acute distress Derm: Dressing to left chest catheter present, skin is warm and dry, extensive subcutaneous emphysema in bilateral upper extremities, upper chest, upper back, face, neck; crepitus present throughout Head: Atraumatic normocephalic, symmetric Eyes: EOMI, no lid lag, anicteric sclera, pupils equal round reactive to light ENT: Nose and ears atraumatic Neck: No cervical lymphadenopathy, trachea midline, supple Mouth: No lip lesion, mucus membranes moist Cardiovascular: S1S2 present, regular rate and rhythm, no murmurs/rubs/gallops Lungs: Diminished breath sounds Abdominal: Soft, nontender to palpation, no guarding Ext: Muscle strength 5 out of 5 in all 4 extremities grossly, no gross muscle atrophy, no contractures, positive dorsalis pedis pulse bilateral, no edema Neuro: CN II-XI grossly intact, no gross focal neuro deficits Psych: Alert, oriented, appropriate affect and mood Assessment Acute subcutaneous emphysema of the left lateral chest wall, upper extremities, neck, face; status post left-sided Pleurx catheter placement 12/14/2023 Hypertension Recurrent left-sided pleural effusion, positive for metastatic adenocarcinoma History of breast cancer Chronic tobacco abuse Plan Pleurx catheter placed on low continuous wall suction Bilateral blow holes placed by CT surgery Continue with lisinopril Continue to monitor leak Pulmonary consulted Cardiothoracic surgery consulted Dr. Bibiana MD I have performed a history and physical examination and medical decision making of this patient, discussed the same with the the resident, and agree with the assessment and plan as written. I performed brief physical exam. Objective - Vital Signs Vital signs: Vital Signs Temp 97.9 F 12/16/23 20:00 Pulse 88 12/17/23 01:52 Resp 16 12/17/23 01:52 BP 142/82 12/17/23 01:52 Pulse Ox 91 L 12/17/23 01:52 FiO2 Intake & Output 12/16/23 12/17/23 12/17/23 18:59 06:59 18:59 Intake Total 540 Output Total 55 250 Balance -55 290 Weight 70.307 kg Intake: Oral 540 Output: Chest Tube Drainage 55 250 Left Upper 55 250 Other: Voiding Method Toilet # Voids 1 - Labs CBC & Chem 7: 12/15/23 12:40 12/15/23 12:40
--- NOTE | 2023-12-17 11:56 | P.PN ---
Subjective Progress Note Date: 12/17/23 This is a very pleasant 63-year-old female patient with a known history of breast cancer in 2016 status post bilateral mastectomy and chemotherapy, hypertension, and large recurrent malignant left pleural effusion. She did undergo a Pleurx catheter placement yesterday and was discharged to home. Today she developed increasing facial edema and left chest edema and was transferred back here from the hospital. Chest x-ray does show extensive subcutaneous emphysema greatest along the left chest wall extending up into the neck and upper extremities. There is evidence of pneumomediastinum. No obvious pneumothorax. Left lower lobe infiltrate. Left Pleurx catheter in place. Low continuous wall suction -20 cm of water. A leak is noted. White count 18.0. Hemoglobin 15.4. Platelets 432. Sodium 138. Potassium 4.3. Bicarb 25. BUN 15. Creatinine 0.43. Glucose 126. AST 87. ALT 89. She is seen today in consultation in the emergency department. She is awake and alert in no acute distress. She is maintaining good O2 saturations in the 90s on room air. She does have extensive subcutaneous emphysema mostly in the left lateral chest wall up into the upper extremities neck and face. She denies any difficulty in swallowing, no difficulty breathing. The patient is seen today December 16, 2023 in follow-up on the regular medical floor. She is awake and alert in no acute distress. Sitting up at the bedside. Continues to maintain good O2 saturations in the 90s on room air. Her subcutaneous emphysema remains. She is afebrile. Hemodynamically stable. CT scan of the chest reveals that the Pleurx catheter to the left chest is kinked as it courses through the subcutaneous layer. It enters via the left lateral eighth intercostal space. Correlate to exclude any chest tube malfunction. Severe subcutaneous emphysema throughout the corresponding pneumomediastinum and small 15% left pneumothorax. Some patchy groundglass changes scattered throughout the left lung could represent pneumonitis versus pulmonary edema. Severe anasarca. Cholelithiasis. She is receiving morphine for pain control. Normal saline at KVO. The patient is seen today December 17, 2023 in follow-up on the regular medical floor. She is currently sitting up in bed. Awake and alert in no acute distress. Continues to maintain good O2 saturations in the 90s on room air. Her subcutaneous emphysema has improved somewhat. She did receive bilateral subclavian blow holes placed today by cardiothoracic. Left Pleurx catheter remains in place to Pleur-evac and low continuous wall suction. Chest x-ray continues to show evidence of pneumomediastinum and subcutaneous emphysema throughout the thorax. Being monitored closely by cardiothoracic surgery. Continues to work well with the incentive spirometer. Objective - Vital Signs Vital signs: Vital Signs Temp 98 F 12/17/23 08:30 Pulse 88 12/17/23 08:30 Resp 18 12/17/23 08:30 BP 129/81 12/17/23 08:30 Pulse Ox 95 12/17/23 08:30 FiO2 Intake & Output 12/16/23 12/17/23 12/17/23 18:59 06:59 18:59 Intake Total 540 Output Total 55 250 Balance -55 290 Weight 70.307 kg Intake: Oral 540 Output: Chest Tube Drainage 55 250 Left Upper 55 250 Other: Voiding Method Toilet Toilet # Voids 1 - Exam GENERAL EXAM: Alert, pleasant 63-year-old female, on room air, comfortable in no apparent distress. HEAD: Normocephalic. Extensive subcutaneous emphysema covering her face and neck. EYES: Unable to open eyes completely due to extensive subcutaneous emphysema. NOSE: Clear with pink turbinates. THROAT: No erythema or exudates. NECK: No masses, no JVD. CHEST: Extensive subcutaneous emphysema along the left lateral chest. Left Pleurx catheter in place to Pleur-evac and low continuous wall suction. LUNGS: Equal air entry with crackles in the left lung base. CVS: S1 and S2 normal with no audible murmur, regular rhythm. ABDOMEN: No hepatosplenomegaly, normal bowel sounds, no guarding or rigidity. SPINE: No scoliosis or deformity SKIN: No rashes CENTRAL NERVOUS SYSTEM: No focal deficits, tone is normal in all 4 extremities. EXTREMITIES: There is no peripheral edema. No clubbing, no cyanosis. Peripheral pulses are intact. - Labs CBC & Chem 7: 12/15/23 12:40 12/15/23 12:40 Assessment and Plan Assessment: Acute subcutaneous emphysema involving the left lateral chest wall, upper extremities, neck and face, status post left-sided Pleurx catheter placement 12/14/2023. CT scan of the chest reveals that the Pleurx catheter to the left chest is kinked as it courses through the subcutaneous layer. It enters via the left lateral eighth intercostal space. Correlate to exclude any chest tube malfunction. Severe subcutaneous emphysema throughout the corresponding pneumomediastinum and small 15% left pneumothorax. Some patchy groundglass changes scattered throughout the left lung could represent pneumonitis versus pulmonary edema. Bilateral blow holes placed today December 17, [address] services to relieve some of the subcutaneous emphysema Recurrent large left-sided pleural effusion, positive for metastatic adenocarcinoma, status post thoracentesis in November 2023 History of breast cancer, status post bilateral mastectomy, bilateral sentinel node biopsy and subsequent reconstruction in 2015 completed chemotherapy in 2017 Chronic tobacco dependence Plan: The patient was seen and evaluated Chest x-ray and medications reviewed Pleurx catheter in good position per CT services Bilateral blow holes placed to relieve some of the subcutaneous emphysema Currently stable and on room air We will continue to follow I have personally seen and examined the patient, performed the documentation and the assessment and plan as written. Number of minutes spent on the visit: 10.
--- NOTE | 2023-12-18 08:19 | XR ---
EXAMINATION TYPE: XR chest 1V portable DATE OF EXAM: 12/18/2023 Comparison: 12/17/2023 Clinical History: 63-year-old female follow-up Subcutaneous emphysema Findings: Left basilar chest tube noted. Severe subcutaneous emphysema persists throughout. Suspect visualizati on of a trace left apical pneumothorax now 7 mm at the apex and 8 mm at the medial left apex. Patchy and interstitial opacities throughout the left lung similar to slightly increased. Heart borderline i n size. Pneumomediastinum. Impression: 1. Borderline heart size. Similar patchy interstitial opacities throughout the left lung. 2. Left basilar chest tube visualized. Trace left apical pneumothorax measuring 8 mm now visualized. 3. Moderately severe diffuse subcutaneous emphysema. Ongoing pneumomediastinum. [facility], , 12/18/2023 8:17 AM
--- NOTE | 2023-12-18 08:27 | P.PN ---
Subjective Progress Note Date: 12/18/23 Principal diagnosis: This is a 63-year-old female patient who follows on an outpatient basis with Chris Schafer nurse practitioner. She has a past medical history significant for metastatic breast cancer and recurrent left pleural effusions with positive cytology, hypertension, and is a lifetime nonsmoker. The patient underwent a left Pleurx catheter placement yesterday by Dr. Kory Lambert, postoperative x- ray was completed which did not show any obvious pneumothorax. The patient reports around midnight last night she developed some swelling to her arms and to her face and subsequently presented to the emergency department at [facility]. The patient reports that she underwent a chest x-ray at [facility] and was subsequently transferred to [facility] due to some subcutaneous emphysema. The patient denies any fever, chills, nausea, v omiting, diarrhea, constipation, dyspnea, dysphagia, hemoptysis, hematemesis, or pain. A chest x-ray was completed here at [facility] which demonstrated extensive subcutaneous emphysema greatest along the left chest wall extending up into the neck and upper extremities, evidence of pneumomediastinum, and no obvious pneumothorax. Post operative day #4 Pleurx catheter placement subcutaneous emphysema. Status post day #1 bilateral blow hole incisions by Dr. Lambert for severe s ubcutaneous emphysema The patient was seen and examined in follow-up today December 18, 2023 at her bedside on the third floor cardiac stepdown unit. She is currently up ambulating in her room, is alert, oriented x 3 and is in no acute apparent distress. She states she feels the subcutaneous emphysema is 50% improved from yesterday after having the blow hole incisions made by Dr. Lambert. Oxygen saturations are 95% on room air and she is achieving 500 mL on her incentive spirometry. Left Pleurx catheter remains connected to bedside Pleur-evac [place] system on low continuous wall suction -20 cm H2O. Intermittent air leak is present. Draining thin serous drainage with 200 mL output in the last 24 hours. Remote telemetry is showing normal sinus rhythm heart rate 80 bpm. She has on no inotropic or pressor support. Bilateral upper chest blow old incision dressings clean and dry. Chest x-ray results reviewed. Objective - Vital Signs Vital signs: Vital Signs Temp 97.7 F 12/17/23 20:00 Pulse 93 12/18/23 02:00 Resp 16 09/15/24 02:00 BP 113/67 12/18/23 02:00 Pulse Ox 92 L 12/18/23 02:00 FiO2 Intake & Output 12/17/23 12/18/23 12/18/23 18:59 06:59 18:59 Intake Total 540 Output Total 90 20 Balance -90 520 Intake: Oral 540 Output: Chest Tube Drainage 90 20 Left Upper 90 20 Other: Voiding Method Toilet Toilet # Voids 3 2 - Exam CONSTITUTIONAL: Cooperative, no acute distress RESPIRATORY: Lungs sounds diminished throughout bilaterally. Respirations symmetrical, nonlabored. Currently on room air with oxygen saturation 95%. Able to achieve 500 mL on her incentive spirometry. Strong cough. CARDIOVASCULAR: S1, S2 present. Regular rate and rhythm, sinus rhythm on telemetry, heart rate in the 80s. Palpable peripheral pulses bilaterally. No edema present. No calf pain or tenderness noted. GASTROINTESTINAL: Abdomen soft, nontender, nondistended. Active bowel sounds present 4 quadrants. Tolerating diet. Passing flatus. GENITOURINARY: Continues to void. INTEGUMENTARY: Skin is warm and dry with evidence of good perfusion. Extensive subcutaneous emphysema to her bilateral upper extremities, neck, chest, back, and face including the periorbital. Bilateral upper chest blow hole incisions dressings, clean and dry. NEUROLOGIC: Cranial nerves II through XII intact no focal deficits. MUSKULOSKELETAL: Able to move all extremities, strength equal bilaterally, gait normal. PSYCHIATRIC: Alert and oriented to person place and time, appropriate affect, intact judgment and insight INVASIVE LINES AND TUBES: Left chest Pleurx catheter in place connected to [place] Pleur-evac system, intermittent air leak is present. Draining thin serosanguineous drainage with 200 mL output in the last 24 hours. - Allied health notes Allied health notes reviewed: nursing - Labs CBC & Chem 7: 12/15/23 12:40 12/15/23 12:40 - Imaging and Cardiology Chest x-ray: report reviewed, image reviewed Assessment and Plan Assessment: Extensive subcutaneous emphysema, likely secondary to persistent cough, status post bilateral blow holes to her upper chest Recurrent left-sided malignant effusion, status post Pleurx catheter placement History of metastatic breast cancer History of hypertension Chronic ongoing tobacco dependence Plan: Continue left pleural Pleurx catheter to low continuous wall suction -20 cm H2O. Continue to monitor for resolution of extensive subcutaneous emphysema. We will change the dressings daily to her bilateral blow holes incisions, incisions were made to help relieve the subcutaneous emphysema. Continue to monitor daily chest x-rays. Increase activity as tolerated. Encourage use of incentive spirometry 10 times every hour while awake. Medical management other comorbidities per primary care service and pulmonology service. More recommendations to follow based on patient's clinical course. Time with Patient: Greater than 30
--- NOTE | 2023-12-18 12:53 | P.PN ---
Subjective Progress Note Date: 12/18/23 This is a very pleasant 63-year-old female patient with a known history of breast cancer in 2016 status post bilateral mastectomy and chemotherapy, hypertension, and large recurrent malignant left pleural effusion. She did undergo a Pleurx catheter placement yesterday and was discharged to home. Today she developed increasing facial edema and left chest edema and was transferred back here from the hospital. Chest x-ray does show extensive subcutaneous emphysema greatest along the left chest wall extending up into the neck and upper extremities. There is evidence of pneumomediastinum. No obvious pneumothorax. Left lower lobe infiltrate. Left Pleurx catheter in place. Low continuous wall suction -20 cm of water. A leak is noted. White count 18.0. Hemoglobin 15.4. Platelets 432. Sodium 138. Potassium 4.3. Bicarb 25. BUN 15. Creatinine 0.43. Glucose 126. AST 87. ALT 89. She is seen today in consultation in the emergency department. She is awake and alert in no acute distress. She is maintaining good O2 saturations in the 90s on room air. She does have extensive subcutaneous emphysema mostly in the left lateral chest wall up into the upper extremities neck and face. She denies any difficulty in swallowing, no difficulty breathing. The patient is seen today December 16, 2023 in follow-up on the regular medical floor. She is awake and alert in no acute distress. Sitting up at the bedside. Continues to maintain good O2 saturations in the 90s on room air. Her subcutaneous emphysema remains. She is afebrile. Hemodynamically stable. CT scan of the chest reveals that the Pleurx catheter to the left chest is kinked as it courses through the subcutaneous layer. It enters via the left lateral eighth intercostal space. Correlate to exclude any chest tube malfunction. Severe subcutaneous emphysema throughout the corresponding pneumomediastinum and small 15% left pneumothorax. Some patchy groundglass changes scattered throughout the left lung could represent pneumonitis versus pulmonary edema. Severe anasarca. Cholelithiasis. She is receiving morphine for pain control. Normal saline at KVO. The patient is seen today December 17, 2023 in follow-up on the regular medical floor. She is currently sitting up in bed. Awake and alert in no acute distress. Continues to maintain good O2 saturations in the 90s on room air. Her subcutaneous emphysema has improved somewhat. She did receive bilateral subclavian blow holes placed today by cardiothoracic. Left Pleurx catheter remains in place to Pleur-evac and low continuous wall suction. Chest x-ray continues to show evidence of pneumomediastinum and subcutaneous emphysema throughout the thorax. Being monitored closely by cardiothoracic surgery. Continues to work well with the incentive spirometer. The patient is seen today December 18, 2023 in follow-up on the selective care unit. She is currently sitting up in bed. Awake and alert in no acute distress. Maintaining good O2 saturations in the 90s on room air. Her significant subcutaneous emphysema is improving. She is able to open her eyes today. She did receive bilateral subclavian blow holes yesterday. Similar patchy interstitial opacities throughout the left lung. Left Pleurx catheter remains in place. There is a trace left apical pneumothorax measuring 8 mm. Moderate diffuse subcutaneous emphysema. Ongoing pneumomediastinum. Objective - Vital Signs Vital signs: Vital Signs Temp 97.9 F 12/18/23 08:25 Pulse 62 12/18/23 12:18 Resp 18 12/18/23 12:18 BP 135/62 12/18/23 12:18 Pulse Ox 97 12/18/23 12:18 FiO2 Intake & Output 12/17/23 12/18/23 12/18/23 18:59 06:59 18:59 Intake Total 540 Output Total 90 20 110 Balance -90 520 -110 Intake: Oral 540 Output: Chest Tube Drainage 90 20 110 Left Upper 90 20 110 Other: Voiding Method Toilet Toilet Toilet # Voids 3 2 - Exam GENERAL EXAM: Alert, pleasant 63-year-old female, on room air, sitting up in bed, in no apparent distress. HEAD: Normocephalic. Extensive subcutaneous emphysema covering her face and neck. Improving. EYES: Unable to open eyes completely due to extensive subcutaneous emphysema. NOSE: Clear with pink turbinates. THROAT: No erythema or exudates. NECK: No masses, no JVD. CHEST: Extensive subcutaneous emphysema along the left lateral chest. Left Pleu rx catheter in place to Pleur-evac and low continuous wall suction. LUNGS: Equal air entry with crackles in the left lung base. CVS: S1 and S2 normal with no audible murmur, regular rhythm. ABDOMEN: No hepatosplenomegaly, normal bowel sounds, no guarding or rigidity. SPINE: No scoliosis or deformity SKIN: No rashes CENTRAL NERVOUS SYSTEM: No focal deficits, tone is normal in all 4 extremities. EXTREMITIES: There is no peripheral edema. No clubbing, no cyanosis. Peripheral pulses are intact. - Labs CBC & Chem 7: 12/15/23 12:40 12/15/23 12:40 Assessment and Plan Assessment: Acute subcutaneous emphysema involving the left lateral chest wall, upper extremities, neck and face, status post left-sided Pleurx catheter placement 12/14/2023. CT scan of the chest reveals that the Pleurx catheter to the left chest is kinked as it courses through the subcutaneous layer. It enters via the left lateral eighth intercostal space. Correlate to exclude any chest tube malfunction. Severe subcutaneous emphysema throughout the corresponding pneumomediastinum and small 15% left pneumothorax. Some patchy groundglass changes scattered throughout the left lung could represent pneumonitis versus pulmonary edema. Bilateral blow holes placed today December 17, [address] services to relieve some of the subcutaneous emphysema Recurrent large left-sided pleural effusion, positive for metastatic adenocarcinoma, status post thoracentesis in November 2023 History of breast cancer, status post bilateral mastectomy, bilateral sentinel node biopsy and subsequent reconstruction in 2016 completed chemotherapy in 2017 Chronic tobacco dependence Plan: The patient was seen and evaluated Chest x-ray and medications reviewed Subcutaneous emphysema improving Pleurx catheter in place Currently stable and on room air We will continue to follow I have personally seen and examined the patient, performed the documentation and the assessment and plan as written. Number of minutes spent on the visit: 10.
--- NOTE | 2023-12-18 15:43 | P.PN ---
Subjective Progress Note Date: 12/18/23 Patient is a 63-year-old female with a past medical history significant for metastatic breast cancer and recurrent left pleural effusions underwent left pleural catheter placement 12/14/[address] Lambert then developed swelling in her arms and face later that night and subsequently went to the emergency department at [facility]. She was noted of subcutaneous emphysema on chest x-ray and was transferred to [facility]. She denies fever, chills, nausea, vomiting, chest pain, shortness of breath, hemoptysis. A repeat chest x-ray here showed extensive subcutaneous emphysema greatest along the left chest wall extending up to the neck and upper extremities, evidence of pneumomediastinum, no obvious pneumothorax, left lower lobe infiltrate. Due to the findings on chest x-ray a consult was placed to Dr. Lambert for further evaluation and treatment recommendations. Chest x-ray shows extensive subcutaneous emphysema along the chest wall extending up into the neck and upper extremities, evidence of pneumomediastinum, no obvious pneumothorax, left lower lobe infiltrate. WBCs 18, AST 87, ALT 89. Afebrile, hypertensive 157/76 12/15. Patient see and examined at bedside. Pleurx catheter is on low continuous wall suction. An air leak was noted. Pulmonary consulted. Believes it is getting worse, can no longer see out of left eye due to swelling. Endorses cough. Repeat chest x-ray: Progression of extensive subcutaneous emphysema throughout the chest, upper extremities, neck, pneumomediastinum. CT chest showed: Kinked pleural catheter, severe subcutaneous emphysema with co rresponding pneumomediastinum, small left pneumothorax, patchy groundglass changes throughout left lung, enlarged paratracheal lymph nodes, severe anasarca, focal fluid and soft tissue along left lateral margin of patient's left breast implant. 12/16. Patient seen and examined at bedside. CT surgery placed bilateral blow holes this morningprocedure was tolerated well. Patient denies chest pain, shortness of breath, wheezing. \\ 12/18/2023 Patient is evaluated in follow-up sitting up in the bed. She is postoperative day 1 bilateral blowhole incisions made for subcutaneous emphysema and patient reports significant improvement and feeling less short of breath. Left-sided chest tube remains in place. X-ray today revealed borderline heart 5, similar patchy interstitial opacity throughout the left lung. A left basilar chest tube is visualized and a trace left apical pneumothorax measuring 8 mm not visualized. There is moderately severe diffuse subcutaneous emphysema with ongoing pneumomediastinum. Review of Systems Constitutional: Denied any fatigue denied any fever. Cardio vascular: denied any chest pain, palpitations Gastrointestinal: denied any nausea, vomiting, diarrhea Pulmonary: Denied any shortness of breath cough Neurologic denied any new focal deficits All inpatient medications were reviewed and appropriate changes in these medications as dictated in the interval history and assessment and plan. Physical examination: Vital signs reviewed General: No acute distress Derm: Dressing to left chest catheter present, skin is warm and dry, extensive subcutaneous emphysema in bilateral upper extremities, upper chest, upper back, face, neck; crepitus present throughout Head: Atraumatic normocephalic, symmetric Eyes: EOMI, no lid lag, anicteric sclera, pupils equal round reactive to light ENT: Nose and ears atraumatic Neck: No cervical lymphadenopathy, trachea midline, supple Mouth: No lip lesion, mucus membranes moist Cardiovascular: S1S2 present, regular rate and rhythm, no murmurs/rubs/gallops Lungs: Diminished breath sounds left-sided chest tube in place dressing intact Abdominal: Soft, nontender to palpation, no guarding Ext: Muscle strength 5 out of 5 in all 4 extremities grossly, no gross muscle atrophy, no contractures, positive dorsalis pedis pulse bilateral, no edema Neuro: CN II-XI grossly intact, no gross focal neuro deficits Psych: Alert, oriented, appropriate affect and mood Assessment Acute subcutaneous emphysema of the left lateral chest wall, upper extremities, neck, face; status post left-sided Pleurx catheter placement -Most recent chest x-ray reveals a 8 mm trace left-sided pneumo thorax Hypertension Recurrent left-sided pleural effusion, positive for metastatic adenocarcinoma History of breast cancer Chronic tobacco abuse Plan Pleurx catheter placed on low continuous wall suction Bilateral blow holes placed by CT surgery Continue with lisinopril Continue to monitor leak Pulmonary consulted Cardiothoracic surgery consulted The impression and plan of care has been dictated by Daxa Whitmore Nurse Practitioner as directed. Dr. Bibiana MD I have performed a history and physical examination and medical decision making of this patient, discussed the same with the dictator, and agree with the dictators assessment and plan as written, documented as a scribe. Based on total visit time, I have performed more than 50% of this visit. Objective - Vital Signs Vital signs: Vital Signs Temp 97.9 F 12/18/23 08:25 Pulse 62 12/18/23 12:18 Resp 18 12/18/23 12:18 BP 135/62 12/18/23 12:18 Pulse Ox 97 12/18/23 12:18 FiO2 Intake & Output 12/17/23 12/18/23 12/18/23 18:59 06:59 18:59 Intake Total 540 Output Total 90 20 110 Balance -90 520 -110 Intake: Oral 540 Output: Chest Tube Drainage 90 20 110 Left Upper 90 20 110 Other: Voiding Method Toilet Toilet Toilet # Voids 3 2 - Labs CBC & Chem 7: 12/15/23 12:40 12/15/23 12:40 Assessment and Plan Time with Patient: Less than 30
[2023-12-19 06:56] LABS: Basophils % (A) 0 %; Eosinophils # (A) 0.1 k/uL (0-0.7); Eosinophils % (A) 2 %; HCT 45.3 % (34.0-46.0); HGB 14.4 gm/dL (11.4-16.0); Lymphocytes # (A) 1.2 k/uL (1.0-4.8); Lymphocytes % (A) 15 %; MCH 27.9 pg (25.0-35.0); MCHC 31.7 g/dL (31.0-37.0); MCV 87.9 fL (80.0-100.0); Mean Platelet Volume 6.8; Monocytes # (A) 0.4 k/uL (0-1.0); Monocytes % (A) 4 %; Neutrophils # (A) 6.7 k/uL (1.3-7.7); Neutrophils % (A) 79 %; Platelet Count 419 k/uL (150-450); RBC 5.15 m/uL (3.80-5.40); RDW 13.5 % (11.5-15.5); WBC 8.5 k/uL (3.8-10.6)
[2023-12-19 07:14] LABS: African American GFR (CKD) >90 (>60 ml/min/1.73 sqM); Anion Gap 5 mmol/L; Blood Urea Nitrogen 10 mg/dL (7-17); Calcium 9.4 mg/dL (8.4-10.2); Carbon Dioxide 30 mmol/L (22-30); Chloride 103 mmol/L (98-107); Glucose 134 mg/dL (74-99); Non-African American GFR(CKD) >90 (>60 ml/min/1.73 sqM); Potassium 4.4 mmol/L (3.5-5.1); Sodium 138 mmol/L (137-145)
[2023-12-19 08:08] VITALS: RESP 17; TEMP 98.2
--- NOTE | 2023-12-19 08:12 | P.PN ---
Subjective Progress Note Date: 12/19/23 Principal diagnosis: Metastatic breast cancer with recurrent left-sided pleural effusions status post Pleurx catheter placement with subsequent extensive subcutaneous emphysema. H istory of hypertension, chronic ongoing tobacco dependence POD #2 bilateral blowhole incisions by Dr. Lambert The patient was seen and examined this morning sitting up in bed on the cardiac stepdown unit in no acute distress. Remains in sinus rhythm, hemodynamically stable. States pain is well-controlled on current medication regimen, denies shortness of breath. Facial and upper chest subcutaneous emphysema still present but significantly improved per patient. Left-sided Pleurx catheter rem ains connected to atrium to continuous wall suction, no airleak present. Bilateral blowhole incisions covered with dry intact dressing. Patient has been ambulatory without difficulty. No other new concerns. Objective - Vital Signs Vital signs: Vital Signs Temp 97.6 F 12/19/23 04:15 Pulse 72 12/19/23 04:15 Resp 18 12/19/23 04:15 BP 160/97 12/19/23 04:15 Pulse Ox 96 12/19/23 04:15 FiO2 Intake & Output 12/18/23 12/19/23 12/19/23 18:59 06:59 18:59 Output Total 140 25 Balance -140 -25 Output: Chest Tube Drainage 140 25 Left Upper 140 25 Other: Voiding Method Toilet Toilet # Voids 2 2 - Exam CONSTITUTIONAL: Appears comfortable, cooperative, no acute distress RESPIRATORY: Lungs sounds diminished bilaterally. Respirations even, nonlabored. Currently on room air with oxygen saturation 96%. Able to achieve 500 mL on incentive spirometry. Strong cough. CARDIOVASCULAR: S1, S2 present. Regular rate and rhythm, sinus rhythm on telemetry. Palpable peripheral pulses bilaterally GASTROINTESTINAL: Abdomen soft, nontender, nondistended. Active bowel sounds present 4 quadrants. Tolerating diet. Positive bowel movement 12/17 GENITOURINARY: Continues to void INTEGUMENTARY: Skin is warm and dry. Loose dressings present over bilateral blowhole incisions NEUROLOGIC: Cranial nerves II through XII intact MUSKULOSKELETAL: Able to move all extremities, strength equal bilaterally, gait normal PSYCHIATRIC: Alert and oriented to person place and time, appropriate affect, intact judgment and insight INVASIVE LINES AND TUBES: Left-sided Pleurx catheter present to continuous wall suction, no airleak present, 25 mL serous drainage overnight, 50 mL in the last 24 hours - Allied health notes Allied health notes reviewed: nursing - Labs CBC & Chem 7: 12/19/23 06:17 12/19/23 06:17 Labs: Abnormal Lab Results - Last 24 Hours (Table) 12/19/23 Range/Units 06:17 Creatinine 0.34 L (0.52-1.04) mg/dL Glucose 134 H (74-99) mg/dL - Imaging and Cardiology Chest x-ray: image reviewed Assessment and Plan Assessment: Metastatic breast cancer with recurrent left-sided pleural effusions status post Pleurx catheter placement with subsequent extensive subcutaneous emphysema, status post bilateral blowhole incisions History of hypertension Chronic ongoing tobacco dependence Plan: Will place occlusive cap on Pleurx, discontinue atrium Dressings to bilateral close to be changed daily, instructed patient Increase activity, ambulate as tolerated Encourage use of incentive spirometry 10 times every hour while awake Smoking cessation counseling and education provided Medical management other comorbidities per primary care and pulmonology Patient may be discharged to home today, instructions related to Pleurx catheter discussed with patient
--- NOTE | 2023-12-19 10:30 | XR ---
EXAMINATION TYPE: XR chest 1V portable DATE OF EXAM: 12/19/2023 COMPARISON: 12/18/2023 INDICATION: Subcutaneous emphysema TECHNIQUE: Single frontal view of the chest is obtained. FINDINGS: The heart size is upper limits of normal. There may be some minimal pneumomediastinum remaining, dim inished [place]. The pulmonary vasculature is normal. Mild infiltrates at the posterior left base. No pneumothorax is identified. Abundant subcutaneous em physema is present, greater on the left. IMPRESSION: 1. Mild left lower lobe posterior infiltrate. 2. Extensive subcutaneous emphysema bilaterally greater on the left. 3. Minimal resolving residual pneumomediastinum. [facility], , 12/19/2023 10:28 AM
--- NOTE | 2023-12-19 11:36 | P.PN ---
Subjective Progress Note Date: 12/19/23 This is a very pleasant 63-year-old female patient with a known history of breast cancer in 2016 status post bilateral mastectomy and chemotherapy, hypertension, and large recurrent malignant left pleural effusion. She did undergo a Pleurx catheter placement yesterday and was discharged to home. Today she developed increasing facial edema and left chest edema and was transferred back here from the hospital. Chest x-ray does show extensive subcutaneous emphysema greatest along the left chest wall extending up into the neck and upper extremities. There is evidence of pneumomediastinum. No obvious pneumothorax. Left lower lobe infiltrate. Left Pleurx catheter in place. Low continuous wall suction -20 cm of water. A leak is noted. White count 18.0. Hemoglobin 15.4. Platelets 432. Sodium 138. Potassium 4.3. Bicarb 25. BUN 15. Creatinine 0.43. Glucose 126. AST 87. ALT 89. She is seen today in consultation in the emergency department. She is awake and alert in no acute distress. She is maintaining good O2 saturations in the 90s on room air. She does have extensive subcutaneous emphysema mostly in the left lateral chest wall up into the upper extremities neck and face. She denies any difficulty in swallowing, no difficulty breathing. The patient is seen today December 16, 2023 in follow-up on the regular medical floor. She is awake and alert in no acute distress. Sitting up at the bedside. Continues to maintain good O2 saturations in the 90s on room air. Her subcutaneous emphysema remains. She is afebrile. Hemodynamically stable. CT scan of the chest reveals that the Pleurx catheter to the left chest is kinked as it courses through the subcutaneous layer. It enters via the left lateral eighth intercostal space. Correlate to exclude any chest tube malfunction. Severe subcutaneous emphysema throughout the corresponding pneumomediastinum and small 15% left pneumothorax. Some patchy groundglass changes scattered throughout the left lung could represent pneumonitis versus pulmonary edema. Severe anasarca. Cholelithiasis. She is receiving morphine for pain control. Normal saline at KVO. The patient is seen today December 17, 2023 in follow-up on the regular medical floor. She is currently sitting up in bed. Awake and alert in no acute distress. Continues to maintain good O2 saturations in the 90s on room air. Her subcutaneous emphysema has improved somewhat. She did receive bilateral subclavian blow holes placed today by cardiothoracic. Left Pleurx catheter remains in place to Pleur-evac and low continuous wall suction. Chest x-ray continues to show evidence of pneumomediastinum and subcutaneous emphysema throughout the thorax. Being monitored closely by cardiothoracic surgery. Continues to work well with the incentive spirometer. The patient is seen today December 18, 2023 in follow-up on the selective care unit. She is currently sitting up in bed. Awake and alert in no acute distress. Maintaining good O2 saturations in the 90s on room air. Her significant subcutaneous emphysema is improving. She is able to open her eyes today. She did receive bilateral subclavian blow holes yesterday. Similar patchy interstitial opacities throughout the left lung. Left Pleurx catheter remains in place. There is a trace left apical pneumothorax measuring 8 mm. Moderate diffuse subcutaneous emphysema. Ongoing pneumomediastinum. This patient is seen today December 19, 2023 on the cardiology floor. She is cu rrently sitting up in bed not in any acute distress. She is awake, alert and oriented. She is maintaining good oxygen saturation at 96% on room air. Her subcutaneous emphysema is improving. She denies any fever, chills, nausea, vomiting, chest pain, or shortness of breath. Chest X ray today showed mild left lower lobe posterior infiltrate, extensive subcutaneous emphysema bilaterally greater on the left, and minimal resolving residual pneumomediastinum. Left Pleurx catheter remains in place. Objective - Vital Signs Vital signs: Vital Signs Temp 98.2 F 12/19/23 08:07 Pulse 88 12/19/23 08:07 Resp 17 12/19/23 08:16 BP 136/83 12/19/23 08:07 Pulse Ox 98 12/19/23 08:07 FiO2 Intake & Output 12/18/23 12/19/23 12/19/23 18:59 06:59 18:59 Output Total 140 25 6 Balance -140 -25 -6 Output: Chest Tube Drainage 140 25 6 Left Upper 140 25 6 Other: Voiding Method Toilet Toilet Toilet # Voids 2 2 - Exam GENERAL EXAM: Alert, pleasant 63-year-old female, on room air, sitting up in bed, in no apparent distress. HEAD: Normocephalic. Extensive subcutaneous emphysema covering her face and neck. Improving. EYES: Able to open eyes NOSE: Clear with pink turbinates. THROAT: No erythema or exudates. NECK: No masses, no JVD. CHEST: Extensive subcutaneous emphysema along the left lateral chest. Left Pleurx catheter in place to Pleur-evac and low continuous wall suction. LUNGS: Mild crackles in left lung, clear to auscultation in right lung, no wheezing. CVS: Regular heart rate, no murmurs ABDOMEN: No hepatosplenomegaly, normal bowel sounds, no guarding or rigidity. SPINE: No scoliosis or deformity SKIN: No rashes CENTRAL NERVOUS SYSTEM: No focal deficits, tone is normal in all 4 extremities. EXTREMITIES: There is no peripheral edema - Labs CBC & Chem 7: 12/19/23 06:17 12/19/23 06:17 Labs: Abnormal Lab Results - Last 24 Hours (Table) 12/19/23 Range/Units 06:17 Creatinine 0.34 L (0.52-1.04) mg/dL Glucose 134 H (74-99) mg/dL Assessment and Plan Assessment: Acute subcutaneous emphysema involving the left lateral chest wall, upper extremities, neck and face, status post left-sided Pleurx catheter placement 12/14/2023. CT scan of the chest reveals that the Pleurx catheter to the left chung st is kinked as it courses through the subcutaneous layer. It enters via the left lateral eighth intercostal space. Correlate to exclude any chest tube malfunction. Severe subcutaneous emphysema throughout the corresponding pneumomediastinum and small 15% left pneumothorax. Some patchy groundglass changes scattered throughout the left lung could represent pneumonitis versus pulmonary edema. Bilateral blow holes placed today December 17, [address] services to relieve some of the subcutaneous emphysema Recurrent large left-sided pleural effusion, positive for metastatic adenocarcinoma, status post thoracentesis in November 2023 History of breast cancer, status post bilateral mastectomy, bilateral sentinel node biopsy and subsequent reconstruction in 2016 completed chemotherapy in 2017 Chronic tobacco dependence Plan: The patient was seen and evaluated Chest x-ray and medications reviewed Subcutaneous emphysema improving Pleurx catheter in place Currently stable and on room air Patient to be discharged today We will continue to follow I have personally seen and examined the patient, performed the documentation and the assessment and plan as written. Number of minutes spent on the visit: 10. Time with Patient: Less than 30
[2023-12-19 11:39] VITALS: BP 136/74; PULSE 64
--- NOTE | 2023-12-19 12:55 | P.DS ---
Providers Date of admission: 12/15/23 12:38 Attending physician: Nabil Mccarty Consults: 12/15/23 12:37 Consult Physician Urgent Consulting Provider: Kory Lambert Consult Reason/Comments: Subcutaneous emphysema Do you want consulting provider notified?: Already Contacted 12/15/23 15:04 Consult Physician Routine Consulting Provider: Vignesh Prado Reason/Comments: subcutaneous emphysema Do you want consulting provider notified?: Yes Primary care physician: Physician Nonstaff Hospital Course: Patient is a 63-year-old female with a past medical history significant for metastatic breast cancer and recurrent left pleural effusions underwent left pleural catheter placement 12/14/[address] Lambert then developed swelling in her arms and face later that night and subsequently went to the emergency department at [facility]. She was noted of subcutaneous emphysema on chest x-ray and was transferred to [facility]. She denies fever, chills, nausea, vomiting, chest pain, shortness of breath, hemoptysis. A repeat chest x-ray here showed extensive subcutaneous emphysema greatest along the left chest wall extending up to the neck and upper extremities, evidence of pneumomediastinum, no obvious pneumothorax, left lower lobe infiltrate. Due to the findings on chest x-ray a consult was placed to Dr. Lambert and pulmonology for further evaluation and treatment recommendations. Chest x-ray shows extensive subcutaneous emphysema along the chest wall extending up into the neck and upper extremities, evidence of pneumomediastinum, no obvious pneumothorax, left lower lobe infiltrate. WBCs 18, AST 87, ALT 89. Afebrile, hypertensive 157/76 12/15. Patient see and examined at bedside. Pleurx catheter is on low continuous wall suction. An air leak was noted. Pulmonary consulted. Believes it is getting worse, can no longer see out of left eye due to swelling. Endorses cough. Repeat chest x-ray: Progression of extensive subcutaneous emphysema throughout the chest, upper extremities, neck, pneumomediastinum. CT chest showed: Kinked pleural catheter, severe subcutaneous emphysema with corresponding pneumomediastinum, small left pneumothorax, patchy groundglass changes throughout left lung, enlarged paratracheal lymph nodes, severe anasarca, focal fluid and soft tissue along left lateral margin of patient's left breast implant. 12/16. Patient seen and examined at bedside. CT surgery placed bilateral blow holes this morningprocedure was tolerated well. Patient denies chest pain, shortness of breath, wheezing. 12/17. Patient is evaluated in follow-up sitting up in the bed. She is postoperative day 1 bilateral blowhole incisions made for subcutaneous emphysema and patient reports significant improvement and feeling less short of breath. Left-sided chest tube remains in place. X-ray today revealed borderline heart 5, similar patchy interstitial opacity throughout the left lung. A left basilar chest tube is visualized and a trace left apical pneumothorax measuring 8 mm not visualized. There is moderately severe diffuse subcutaneous emphysema with ongoing pneumomediastinum. 12/18. Patient evaluated sitting up in bed. She is postoperative day 2 of bilateral blowhole incisions for subcutaneous emphysema. She reports significant improvement and less shortness of breath. No new concerns. Patient is hemodynamically stable for discharge. Cardiothoracic surgery and pulmonology have cleared her for discharge. Final diagnosis Subcutaneous emphysema secondary to Pleurx catheter placement due to recurrent left-sided pleural effusions likely due to metastatic breast cancer; status post bilateral blowhole incisions Vital signs are stable. General: No acute distress. HEENT: Head exam is unremarkable. Lungs: Bilateral breath sounds present; no rhonchi, wheezes, or rales. Heart: Rate and rhythm are regular. Abdomen: Nontender. Extremities: No edema present. Attestation I have seen and examined this patient with my resident , discussed the same with the resident/LUZ, and agree with the dictator's assessment and plan as written Dr. Brian ryder Patient Condition at Discharge: Good Plan - Discharge Summary Discharge Rx Participant: Yes New Discharge Prescriptions: New SILVER sulfADIAZINE CREAM [Silvadene Cream] 1 applic TOPICAL DAILY #50 gram Continue lisinopriL [Prinivil] 5 mg PO DAILY Ascorbic Acid [Vitamin C] 1,500 mg PO DAILY Cyanocobalamin [Vitamin B-12] 1,000 mcg PO DAILY Zinc Gluconate [Zinc] 50 mg PO DAILY Anastrozole 1 mg PO DAILY Albuterol Inhaler [Ventolin Hfa Inhaler] 1 - 2 puff INHALATION RT-Q6H PRN PRN Reason: Shortness Of Breath Cholecalciferol [Vitamin D3 (125 Mcg = 5000 Iu)] 125 mcg PO DAILY Calcium Carbonate/Vitamin D3 [Calcium 500 mg Chewable Tablet] 2 tab PO DAILY atenoloL [Tenormin] 50 mg PO DAILY Turmeric Root Extract [Turmeric] 500 mg PO DAILY Discharge Medication List Ascorbic Acid [Vitamin C] 1,500 mg PO DAILY 01/02/16 [History] lisinopriL [Prinivil] 5 mg PO DAILY 01/02/16 [History] Cyanocobalamin [Vitamin B-12] 1,000 mcg PO DAILY 02/09/16 [History] Anastrozole 1 mg PO DAILY 12/09/23 [History] Albuterol Inhaler [Ventolin Hfa Inhaler] 1 - 2 puff INHALATION RT-Q6H PRN 12/15/23 [History] Calcium Carbonate/Vitamin D3 [Calcium 500 mg Chewable Tablet] 2 tab PO DAILY 12/15/23 [History] Cholecalciferol [Vitamin D3 (125 Mcg = 5000 Iu)] 125 mcg PO DAILY 12/15/23 [History] Turmeric Root Extract [Turmeric] 500 mg PO DAILY 12/15/23 [History] Zinc Gluconate [Zinc] 50 mg PO DAILY 12/15/23 [History] atenoloL [Tenormin] 50 mg PO DAILY 12/15/23 [History] SILVER sulfADIAZINE CREAM [Silvadene Cream] 1 applic TOPICAL DAILY #50 gram 12/19/23 [Rx] Follow up Appointment(s)/Referral(s): Vingesh Prado MD [STAFF PHYSICIAN] - 1 Week (Please continue with your scheduled apt.) Kory Lambert MD [STAFF PHYSICIAN] - As Needed [facility], [NON-STAFF] - Chris Schafer NPC [REFERRING] - 1 Week Nonstaff,Physician [Primary Care Provider] - 1-2 days Activity/Diet/Wound Care/Special Instructions: PLEURX discharge instructions: 1. Home Care is ordered, they will obtain new bottles. 2. May shower after 24 hours, no tub baths/hot tubs. 3. Do not drain more than 1 liter or 1000 mL in 24 hours. 4. New drainage bottle needed with each drainage. 5. Drainage frequency dictated by patient symptoms, may be every day, every other day, weekly, or however often the patient is symptomatic. 6. Please notify OCCUPATIONAL THERAPY PROFESSOR or office if temperature >101F, excessive pain at insertion site, drainage consistency changes to cloudy or smells bad, catheter falls out, or anything else that concerns you. 7. Contact surgery office with weekly drainage amounts. May fax the amounts. 8. Once drainage is less than 50 mL three times in a row, notify the surgery o ffice for possible removal. Surgery office: , fax Order for pleurex supplies sent to [facility] ([phone]) Blowhole incision dressings to be changed daily as instructed Discharge Disposition: HOME WITH HOME HEALTH SERVICES
== END 2023-12-19 12:06 | disposition home health service (06) | DRG 920 ==
LOC: EC 10:27 → 4SSUR 12:38 → 3SCARD 16:55
PROVIDERS: ADMIT Internal Medicine; ATTEND Internal Medicine
PROC: 0W9B30Z Drainage of Left Pleural Cavity with Drainage Device, Percutaneous Approach (ICD-10-PCS; principal; 2023-12-17)
DX: T81.82XA Emphysema (subcutaneous) resulting from a procedure, initial encounter (principal); C79.9 Secondary malignant neoplasm of unspecified site; J90 Pleural effusion, not elsewhere classified; J93.82 Other air leak; T79.7XXA Traumatic subcutaneous emphysema, initial encounter; R59.0 Localized enlarged lymph nodes; F17.200 Nicotine dependence, unspecified, uncomplicated; I10 Essential (primary) hypertension; Z90.13 Acquired absence of bilateral breasts and nipples; K80.20 Calculus of gallbladder without cholecystitis without obstruction; Z79.811 Long term (current) use of aromatase inhibitors; Z79.899 Other long term (current) drug therapy; Z85.3 Personal history of malignant neoplasm of breast; Z92.21 Personal history of antineoplastic chemotherapy; Z98.82 Breast implant status
CPT/HCPCS: 36415; 71045; 71250; 80048; 80053; 85025; 85610; 85730; 93005; 96374; 96376; 99285

== ENCOUNTER → 2023-12-21 | Outpatient (CLI) | payer BC ==
--- NOTE | 2023-12-26 10:22 | MR ---
EXAMINATION TYPE: MR brain wo/w con DATE OF EXAM: 12/21/2023 1:18 PM CLINICAL INDICATION: Female, 63 years old with history of C50.411 MALIG NEOPLASM UPPER OUTTER QUAD RT BREAST; PHH, Breast ca COMPARISON: None TECHNIQUE: Multi planar, multi sequence imaging was performed through the brain including: T1, T2, In version recovery, susceptibility weighted imaging and gradient echo imaging and Diffusion weighted im aging. The patient was then given intravenous contrast and multi planar, T1 fat-saturation images wer e obtained. IV Contrast: 7 cc Gadavist FINDINGS: The gonzalez-white junctions, ventricular system, basal cisterns appear unremarkable. Diffusion-weighted imaging shows no evidence of restricted diffusion to suggest acute/subacute infarct. Intracranial ar terial flow voids are maintained. Midline structures show no abnormality. Scattered foci of high T2 s ignal intensity are seen within the periventricular white matter. The susceptibility weighted images do not reveal any evidence for micro-hemorrhage. After administration of gadolinium, no abnormal enha ncement is seen. The bone marrow signal is within normal limits. Paranasal sinuses and mastoid air cells: No significant paranasal sinus disease. Visualized orbits: Orbital contents are intact. IMPRESSION: 1. No evidence of intracranial mass, acute/subacute infarct, or abnormal enhancement. 2. Nonspecific white matter changes, likely related to small vessel ischemic disease. [facility], , 12/26/2023 10:20 AM
== END | disposition home or self-care (01) ==
LOC: RADMRIMAIN 11:57
PROVIDERS: ATTEND Internal Medicine Hematology & Oncology
DX: C50.411 Malignant neoplasm of upper-outer quadrant of right female breast
CPT/HCPCS: 70553

== ENCOUNTER → 2023-12-22 | Outpatient (CLI) | payer BC ==
--- NOTE | 2023-12-25 01:32 | PE ---
EXAMINATION TYPE: PET CT fusion skull to thigh DATE OF EXAM: 12/22/2023 CLINICAL INDICATION:Female, 63 years old with history of C50.411 BREAST CANCER; TECHNIQUE: Following the intravenous administration of 9.22 mCi of F-18 FDG, whole body images are performed from the skull base to the midthigh. Images are reviewed on the computer in the coronal, a xial, and sagittal planes. Reconstructed rotating images are created on independent workstation and reviewed on the computer. A non-contrast CT is performed in conjunction with the PET scan. Glucose level 116 mg/dL CT DLP: 372.02 mGycm, Automated exposure control for dose reduction was used. COMPARISON: CT 12/16/2023, 11/18/2023, PET/CT 11/22/2015, MRI: 12/21/2023 FINDINGS: Mediastinal SUV mean is 2.1. Hepatic parenchyma SUV mean is 2.9. SKULL BASE AND NECK: No suspicious radiotracer activity. CHEST, MEDIASTINUM, AND HILAR REGION: No focal radiotracer uptake identified at the bilateral breast implants sites. No uptake identified w ithin the previously seen fat-containing region along the left lateral aspect of the left breast impl ant. Focal FDG uptake identified within a nodular anterior lingular 1.1 cm nodule (series 3, image 131). D emonstrates a maximum SUV of 9.6. There is patchy radiotracer uptake with opacification within the left lateral chest wall at site of k inked catheter at the 8/9 rib. This measures a maximum SUV of 8.5. Left paratracheal superior mediastinal 1.0 cm lymph node with a maximum SUV of 6.9. Left prevascular space 1.1 cm lymph node with a maximum SUV of 4.5. Right paratracheal 0.9 cm lymph node with a maximum SUV of 4.7. Subcarinal 1.6 cm enlarged lymph node with a maximum SUV of 6.1. Left pulmonary hilum focal FDG activity with a maximum SUV of 5.1. ABDOMEN AND PELVIS: No suspicious radiotracer activity. MUSCULOSKELETAL STRUCTURES: Left anterior fifth rib sclerotic lesion with a maximum SUV of 5.7. Additional focal FDG activity of adjacent to the ninth posterior left rib without CT correlate. Focal sclerotic foci within the lower sternum with a maximum SUV of 6.8. Additional subcentimeter sclerotic foci within the osseous structures involving the pelvic bones and vertebral bodies with definitive FDG uptake above background. OTHER CT: Bilateral breast implants. Mild decrease in size and diffuse subcutaneous emphysema through out the chest with extension into the neck and head. Extension into the bilateral upper extremities d emonstrated. Additional extension into the abdomen and left anterior pelvis soft tissues. Mild decrea se in size of pneumomediastinum from prior exam. Near complete resolution of previously demonstrated left pneumothorax. Increased small left pleural effusion with extension to the major fissure. Similar position of left pleural pigtail catheter with kinking identified within the left lateral chest wall again. One sidehole is identified within the left lateral chest wall again. Mildly increased small p ericardial effusion. Minimal atherosclerotic calcification of the aorta and its branches. Left lower lobe calcified granuloma. Near-complete resolution of previously seen left lung groundglass changes. Cholelithiasis. Tiny fat filled hernia. Mild to moderate sized midline anterior lower abdominal wall fat filled hernia containing some mesenteric vessels. Defect measures up to 2.0 cm. Left-sided pelvic phleboliths. Nonobstructive left renal 3 mm calculus. Stable right adrenal gland hypodense 1.6 mm no dule consistent with a lipid rich adenoma. IMPRESSION: 1. Mild decrease in extensive subcutaneous emphysema and marginal decrease in pneumomediastinum from prior CT. Near complete resolution of left pneumothorax. Unchanged appearance of left pleural cathet er with kinked appearance within the left lateral chest wall. Development of small left pleural effus ion and increased small pericardial effusion. 2. Lingular FDG avid 1.1 cm nodule concerning for pulmonary metastasis. 3. Mediastinal and left perihilar lymph nodes with FDG activity. A superior mediastinal lymph node d emonstrates prominent FDG activity with remaining demonstrating mild FDG activity. These may be react roc from infection/inflammatory etiology versus metastasis. 4. Sclerotic foci with FDG uptake within the sternum and left anterior fifth rib highly suspicious f or osseous metastasis. Additional subcentimeter scattered osseous sclerotic foci without significant FDG uptake. May also represent osseous metastasis. Single focus of FDG uptake adjacent to the left po sterior ninth rib without CT correlate. Could represent metastasis. 5. Patchy FDG uptake around the kinked portion of the catheter within the left lateral chest wall. F avored to represent an infectious/inflammatory etiology. [facility], , 12/25/2023 1:30 AM
== END | disposition home or self-care (01) ==
LOC: RADPETMAIN 13:10
PROVIDERS: ATTEND Internal Medicine Hematology & Oncology
DX: C50.411 Malignant neoplasm of upper-outer quadrant of right female breast
CPT/HCPCS: 78815

== ENCOUNTER → 2024-02-13 | Outpatient (CLI) | payer BC ==
[2024-02-13 12:31] LABS: African American GFR (CKD) >90 (>60 ml/min/1.73 sqM); Blood Urea Nitrogen 21 mg/dL (7-17); Non-African American GFR(CKD) >90 (>60 ml/min/1.73 sqM)
--- NOTE | 2024-02-13 14:32 | CT ---
EXAMINATION TYPE: CT ChestAbdPelvis w con CT DLP: 900.3 mGycm, Automated exposure control for dose reduction was used. DATE OF EXAM: 02/13/2024 1:46 PM COMPARISON: PET CT 12/22/2023, 11/22/2015, CT chest 12/16/2023, CTA chest 12/09/2023 CLINICAL INDICATION:Female, 63 years old with history of Z01.818 ENCOUNTER FOR OTHER PREPROCEDURAL EX AMINAT; PHH, Breast Ca. x 8 years. Currently on chemo for Lung Ca. Technique: Multiple axial images of the chest, abdomen, and pelvis were obtained following the intrav enous administration of 100 mL Isovue-300. Oral contrast was administered. Two-dimensional coronal an d sagittal reconstructions were obtained. Findings: CHEST: LUNGS/ PLEURA: Trace right pleural effusion. Increased moderate size loculated left pleural effusion. Patchy left lung subpleural atelectatic change identified. Calcified granuloma within the left lung base. Previously seen lingular nodule is not definitively appreciated on today's exam however there i s surrounding atelectatic change. AIRWAY: Patent and unremarkable.. HEART: Size within normal limits. Moderate sized pericardial effusion. MEDIASTINUM: Stable enlarged left superior mediastinal is 0.8 cm metastatic lymph node. Similar congl omerate adenopathy identified within the mediastinum. Complete resolution of pneumomediastinum. VASCULATURE: No aortic aneurysm. MUSCULOSKELETAL: No acute osseous abnormalities. Couple of sclerotic foci within the sternum. Additio nal scattered foci within the right fifth and seventh ribs. Additional sclerotic focus within the lef t lateral fifth rib. SOFT TISSUES/LYMPH NODES: Bilateral breast prosthesis. Near-complete resolution of previously seen jamil bcutaneous emphysema with trace foci of gas within the anterior chest wall. There is stranding in thi s region. Interval removal of drainage catheter. Similar fat-containing lesion along the left lateral aspect of the breast implant. May represent a lipoma versus postsurgical change. LOWER NECK: Complete resolution of previously seen subcutaneous emphysema. ABDOMEN: ABDOMEN LIVER: Unremarkable GALLBLADDER AND BILE DUCTS: Cholelithiasis. No biliary ductal dilatation. PANCREAS: Unremarkable. SPLEEN: Unremarkable. ADRENAL GLANDS: Left adrenal gland is unremarkable. Stable right adrenal gland 1.6 cm nodule which is previously characterized as a lipid rich adenoma. KIDNEYS AND URETERS: No evidence of renal calculi. No right hydronephrosis. Mild left hydronephrosis. The kidneys enhance symmetrically. Contrast is demonstrated within both collecting systems on the de layed phase. PELVIS BLADDER: Unremarkable REPRODUCTIVE: Unremarkable. ABDOMEN & PELVIS STOMACH AND BOWEL: Stomach and duodenum are unremarkable. Enteric contrast reaches the distal small b owel. No focal bowel wall thickening or surrounding inflammatory changes. No evidence of bowel obstru ction. PERITONEUM: No evidence of pneumoperitoneum or free fluid. VASCULATURE: No evidence of aortic aneurysm. Stable left pelvic phleboliths. MUSCULOSKELETAL: No acute osseous abnormalities. Redemonstration of multiple sclerotic foci within th e visualized osseous structures. Similar to prior exam. LYMPH NODES: No evidence for lymphadenopathy. SOFT TISSUE/ABDOMINAL WALL: Tiny fat filled umbilical hernia. Redemonstration of midline infraumbilic al hernia containing fat and mesenteric vessels with defect measuring up to 2.6 cm. IMPRESSION: 1. Near complete resolution of previously seen subcutaneous emphysema with complete resolution of pn eumomediastinum. 2. Increasing moderate-sized loculated left pleural effusion. Development of trace right pleural eff usion. Similar moderate sized pericardial effusion. 3. Similar mediastinal adenopathy. Known FDG avid lingular nodule is poorly visualized on today's ex amination with surrounding atelectasis. Attention on follow-up exam. 4. Similar scattered osseous sclerotic lesions favored to represent metastatic disease. 5. Mild left hydroureteronephrosis without obstructing calculus. [facility], , 02/13/2024 2:30 PM
--- NOTE | 2024-02-14 07:10 | CA ---
Transthoracic Echo Report Name: Lizbet Alvarenga Age: 63 Gender: F : 1960 Exam Date: 02/13/2024 13:46 Exam Location: [facility] Ht (in): 64 Wt (lb): 145 Ordering Physician: Seven Ordoñez MD Attending/Referring Phys: Painter Spray Ingrid Suarez RDCS Procedure CPT: Indications: Z01.818 ENCOUNTER FOR OTHER PREPROCEDURAL EXAMINAT Cardiac Hx: Technical Quality: Fair Contrast 1: Definity Total Dose (mL): 2 Contrast 2: Total Dose (mL): MEASUREMENTS (Male / Female) Normal Values 2D ECHO LV Diastolic Diameter PLAX 5.1 cm 4.2 - 5.9 / 3.9 - 5.3 cm LV Systolic Diameter PLAX 3.1 cm IVS Diastolic Thickness 0.8 cm 0.6 - 1.0 / 0.6 - 0.9 cm LVPW Diastolic Thickness 1.0 cm 0.6 - 1.0 / 0.6 - 0.9 cm LV Relative Wall Thickness 0.4 RV Internal Dim ED PLAX 2.5 cm LA Systolic Diameter LX 3.9 cm 3.0 - 4.0 / 2.7 - 3.8 cm M-MODE Aortic Root Diameter MM 3.1 cm AV Cusp Separation MM 2.2 cm DOPPLER AV Peak Velocity 124.9 cm/s AV Peak Gradient 6.2 mmHg MV Area PHT 3.8 cm??? Mitral E Point Velocity 75.0 cm/s Mitral A Point Velocity 89.7 cm/s Mitral E to A Ratio 0.8 MV Deceleration Time 198.6 ms TR Peak Velocity 254.0 cm/s TR Peak Gradient 25.8 mmHg Right Ventricular Systolic Press 30.8 mmHg FINDINGS Left Ventricle Left ventricular ejection fraction is estimated at 50-55 %. Left ventricular cavity size normal. Mildly increased posterior wall thickness. Right Ventricle Normal right ventricular size and function. Mild pulmonary hypertension. Right Atrium Right atrium not well visualized. Left Atrium Normal left atrial size. No left atrial thrombus or mass present. Mitral Valve Structurally normal mitral valve. No mitral stenosis, regurgitation or prolapse. Aortic Valve Trileaflet aortic valve. No aortic valve stenosis or regurgitation. Tricuspid Valve Structurally normal tricuspid valve. Mild tricuspid regurgitation. Pulmonic Valve Structurally normal pulmonic valve. Trace pulmonic regurgitation. Pericardium Moderate pericardial effusion. Aorta Normal size aortic root and proximal ascending aorta. CONCLUSIONS Ttechnically difficult study for interpretation Normal LV systolic function No significant valvular abnormalities Moderate pericardial effusion with no tamponade physiology Previewed by: Dr. Jens Ang MD (Electronically Signed) Final Date: 14 February 2024 07:10
== END | disposition home or self-care (01) ==
LOC: RADECHMAIN 11:13
PROVIDERS: ATTEND Internal Medicine Hematology & Oncology
DX: Z01.818 Encounter for other preprocedural examination (principal); C34.82 Malignant neoplasm of overlapping sites of left bronchus and lung; J91.0 Malignant pleural effusion; C50.411 Malignant neoplasm of upper-outer quadrant of right female breast; Z17.0 Estrogen receptor positive status [ER+]; I31.39 Other pericardial effusion (noninflammatory); R59.0 Localized enlarged lymph nodes; J98.11 Atelectasis; N13.30 Unspecified hydronephrosis; K42.9 Umbilical hernia without obstruction or gangrene; Z85.3 Personal history of malignant neoplasm of breast; I27.20 Pulmonary hypertension, unspecified; I07.1 Rheumatic tricuspid insufficiency; I37.1 Nonrheumatic pulmonary valve insufficiency
CPT/HCPCS: 93306; 82565; 84520; 71260; 74177; 36415; Q9957; Q9967

== ENCOUNTER → 2024-02-13 | Outpatient (CLI) | payer BC | END | disposition home or self-care (01) | LOC: RADCTMAIN 11:14 | PROVIDERS: ATTEND Internal Medicine Hematology & Oncology | DX: C34.82 Malignant neoplasm of overlapping sites of left bronchus and lung (principal) ==

== ENCOUNTER → 2024-05-25 | Outpatient (CLI) | payer BC ==
--- NOTE | 2024-05-25 14:05 | CT ---
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 Technique: CT ChestAbdPelvis w con; Multiple axial images were obtained. Two-dimensional coronal and sagittal reconstructions were obtained. Contrast used:100ml mL of Isovue 300 with IV Contrast, (None if empty) Oral contrast used: with Oral Contrast CT DLP: 701.2 mGycm, Automated exposure control for dose reduction was used. Findings: CHEST: LUNGS/ PLEURA: Trace right pleural effusion has resolved. Slight decrease in moderate left pleural effusion which is loculated on prior.. Patchy left lung subp leural airspace opacities are present. Calcified granuloma within the left lung base. Previously seen lingular nodule is not definitively ap preciated on today's exam however there is surrounding atelectatic change. AIRWAY: Patent and unremarkable.. HEART: Size within normal limits.Decrease in pericardial effusion. MEDIASTINUM: Large left superior mediastinal lymph nodes has decreased in size now very small lymph n ode remains measuring 2 mm. Lymph nodes within the mediastinum are smaller with less pericardial effu florencia on today's exam. VASCULATURE: No aortic aneurysm. 4 vessel aortic arch present. MUSCULOSKELETAL: No acute osseous abnormalities. Stable sclerotic foci within the sternum. Additional scattered foci within the right fifth and seventh ribs. Additional sclerotic focus within the left l ateral fifth rib. SOFT TISSUES/LYMPH NODES: Bilateral breast prosthesis. Near-complete resolution of previously seen jamil bcutaneous emphysema with trace foci of gas within the anterior chest wall. There is stranding in thi s region. Interval removal of drainage catheter. Similar fat-containing lesion along the left lateral aspect of the breast implant. May represent a lipoma versus postsurgical change. LOWER NECK: Complete resolution of previously seen subcutaneous emphysema. ABDOMEN: ABDOMEN LIVER: Unremarkable GALLBLADDER AND BILE DUCTS: Cholelithiasis. No biliary ductal dilatation. PANCREAS: Unremarkable. SPLEEN: Unremarkable. ADRENAL GLANDS: Left adrenal gland is unremarkable. Stable right adrenal gland 1.6 cm nodule which is previously characterized as a lipid rich adenoma. KIDNEYS AND URETERS: No evidence of renal calculi. No right hydronephrosis. Resolution of left hydron ephrosis. Resolution of prior obstructing left renal calculus. The kidneys enhance symmetrically. Con trast is demonstrated within both collecting systems on the delayed phase. PELVIS BLADDER: Unremarkable REPRODUCTIVE: Unremarkable. ABDOMEN & PELVIS STOMACH AND BOWEL: Stomach and duodenum are unremarkable. Enteric contrast reaches the distal small b owel. No focal bowel wall thickening or surrounding inflammatory changes. No evidence of bowel obstru ction. PERITONEUM: No evidence of pneumoperitoneum or free fluid. VASCULATURE: No evidence of aortic aneurysm. Stable left pelvic phleboliths. MUSCULOSKELETAL: No acute osseous abnormalities. Stable multiple sclerotic foci within the visualized osseous structures. Similar to prior exam. LYMPH NODES: No evidence for lymphadenopathy. SOFT TISSUE/ABDOMINAL WALL: Tiny fat filled umbilical hernia. Redemonstration of midline infraumbilic al hernia containing fat and mesenteric vessels with defect measuring up to 2.3 cm. IMPRESSION: 1. Decrease in left pleural effusion with patchy airspace opacities in the left lung base more prono unced than prior correlate for airspace disease/pneumonia. 2. Decrease right pleural effusion, now no longer visualized.. 3. Decrease in adenopathy within the mediastinum.. Attention follow-up PET/CT for metabolic activity . 4. Similar scattered osseous sclerotic lesions favored to represent metastatic disease. 5. Resolution of left hydroureteronephrosis from prior. [facility], , 05/25/2024 2:03 PM
== END | disposition home or self-care (01) ==
LOC: RADCTMAIN 11:16
PROVIDERS: ATTEND Internal Medicine Hematology & Oncology
DX: C34.82 Malignant neoplasm of overlapping sites of left bronchus and lung (principal); C50.411 Malignant neoplasm of upper-outer quadrant of right female breast; J91.0 Malignant pleural effusion; R59.9 Enlarged lymph nodes, unspecified; Z17.0 Estrogen receptor positive status [ER+]; K42.9 Umbilical hernia without obstruction or gangrene
CPT/HCPCS: 71260; 74177; 36415; Q9967; 82565; 84520

== ENCOUNTER → 2024-08-24 | Outpatient (CLI) | payer BC ==
[2024-08-24 11:52] LABS: African American GFR (CKD) >90 (>60 ml/min/1.73 sqM); Blood Urea Nitrogen 25 mg/dL (7-17); Non-African American GFR(CKD) >90 (>60 ml/min/1.73 sqM)
--- NOTE | 2024-08-24 15:04 | CT ---
EXAMINATION TYPE: CT ChestAbdPelvis w con CT DLP: 820.3 mGycm, Automated exposure control for dose reduction was used. 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 Technique: Multiple axial images of the chest, abdomen, and pelvis were obtained following the intrav enous administration of 100 mL Isovue-300. Oral contrast was administered. Two-dimensional coronal an d sagittal reconstructions were obtained. Findings: CHEST: LUNGS/ PLEURA: No pneumothorax. No right pleural effusion. Decreased small left pleural effusion with pleural enhancement and associated atelectasis. Stable left lower lobe calcified granuloma. Mild dep endent bilateral lower lobe subsegmental atelectasis. Mild lingular linear atelectasis and/or scarrin g. No new or suspicious pulmonary nodules or masses. AIRWAY: Patent and unremarkable.. HEART: Cardiomegaly is demonstrated.Trace pericardial effusion. No significant atherosclerotic diseas e of the coronary arteries. MEDIASTINUM: No pathologically enlarged lymph nodes. A 1 cm short axis identified. VASCULATURE: No aortic aneurysm. Four-vessel aortic arch. MUSCULOSKELETAL: No acute osseous abnormalities. Decrease sclerotic appearance of 2 foci within the s ternum and within the right fifth and seventh ribs and left lateral fifth rib likely representing grover ated disease. No new suspicious osseous lesions. SOFT TISSUES/LYMPH NODES: Bilateral breast prosthesis. Similar fat-containing lesion along the left l ateral aspect of the breast implant. May represent a lipoma versus postsurgical change. LOWER NECK: Complete resolution of previously seen subcutaneous emphysema. ABDOMEN: ABDOMEN LIVER: Unremarkable GALLBLADDER AND BILE DUCTS: Cholelithiasis. No biliary ductal dilatation. PANCREAS: Unremarkable. SPLEEN: Unremarkable. ADRENAL GLANDS: Left adrenal gland is unremarkable. Stable right adrenal gland 1.6 cm nodule which is previously characterized as a lipid rich adenoma. KIDNEYS AND URETERS: No evidence of renal calculi or hydronephrosis. Contrast is demonstrated within both collecting systems and proximal ureters on the delayed phase. PELVIS BLADDER: Unremarkable REPRODUCTIVE: Unremarkable. ABDOMEN & PELVIS STOMACH AND BOWEL: Stomach and duodenum are unremarkable. Enteric contrast reaches the distal small b owel. No focal bowel wall thickening or surrounding inflammatory changes. No evidence of bowel obstru ction. PERITONEUM: No evidence of pneumoperitoneum or free fluid. VASCULATURE: No evidence of aortic aneurysm. Stable left pelvic phleboliths. MUSCULOSKELETAL: No acute osseous abnormalities. Stable to decreased sclerotic foci within the visual ized osseous structures likely representing treated disease. No new suspicious osseous lesions. LYMPH NODES: No evidence for lymphadenopathy greater than 1 subcentimeter short axis. SOFT TISSUE/ABDOMINAL WALL: Tiny fat filled umbilical hernia. Redemonstration of midline infraumbilic al hernia containing fat and mesenteric vessels with defect measuring up to 2.9 cm. IMPRESSION: 1. Positive response to therapy with decreasing osseous sclerotic lesions and mediastinal adenopathy from prior exams. 2. Decreased small left chronic pleural effusion with associated atelectasis. [facility], , 08/24/2024 3:02 PM
== END | disposition home or self-care (01) ==
LOC: RADCTMAIN 10:38
PROVIDERS: ATTEND Internal Medicine Hematology & Oncology
DX: C34.82 Malignant neoplasm of overlapping sites of left bronchus and lung (principal); C50.411 Malignant neoplasm of upper-outer quadrant of right female breast; I10 Essential (primary) hypertension; J91.0 Malignant pleural effusion; Z17.0 Estrogen receptor positive status [ER+]; R59.0 Localized enlarged lymph nodes
CPT/HCPCS: 82565; 84520; 71260; 74177; 36415; Q9967